=== PATIENT | female | born 1980 | race Caucasian/White ===

== ENCOUNTER 2017-04-25 16:04 | Emergency (ER) | payer OTHER ==
[2017-04-25] MEDS ORDERED: MOTRIN PO ONE (17:55)
[2017-04-25] MEDS ORDERED: MOTRIN ONE (17:56)
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
[2017-04-25 18:22] LABS: Amorphous Crystals,Urine Few; Bacteria,Urine 1+ /HPF (Negative); Bilirubin,Urine NEG (Negative); Blood,Urine NEG (Negative); Color,Urine Yellow (Yellow); Mucus,Urine FEW /HPF; Protein,Urine <15 mg/dL mg/dL (Negative)
[2017-04-25 18:25] LABS: HCG Qualitative,Urine Negative (Negative)
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
[2017-04-25 23:59] VITALS: BP 116/64
== END 2017-04-25 22:09 | disposition home or self-care (01) ==
LOC: ED 16:04
DX: S39.012A Strain of muscle, fascia and tendon of lower back, initial encounter (principal); S13.4XXA Sprain of ligaments of cervical spine, initial encounter; F17.200 Nicotine dependence, unspecified, uncomplicated; V89.2XXA Person injured in unspecified motor-vehicle accident, traffic, initial encounter; Y93.89 Activity, other specified; Y92.89 Other specified places as the place of occurrence of the external cause; Y99.8 Other external cause status
CPT/HCPCS: 72040; 72070; 72100; 81001; 81025; 99284

== ENCOUNTER 2017-11-15 14:50 | Emergency (ER) | payer SELFPAY ==
[2017-11-15] MEDS ORDERED: DECADRON IM ONE (17:35)
--- NOTE | 2017-11-15 17:36 | Emergency Department Report ---
ED Rash HPI - HPI Chief Complaint: Skin Rash Stated Complaint: FEVER/COLD Duration: 3 weeks Location: Neck, Chest, Back, Upper Extremities, Lower Extremities Suspected Cause: Plant Rash Symptoms: Yes Itching, Yes Blistering, No Facial Swelling, No Tongue/Oral Swelling, No Breathing Difficulties, No Choking Sensation, No Wheezing/Dyspnea, No Peeling, No Fever, No Lightheaded, No Malaise, No Myalgias Other History: This is a 37-year-old female presents with a pruritic rash for 3 weeks. Patient states she was working in the [employer] 3 weeks ago and came in contact with [employer]. She reports rash initially started arm right forearm. Each day rash continued to spread. She is currently taking and see an over- the-counter itch cream. Patient reports rash increased during meals soaks and showers. She is also complaining of body aches and chills. Patient denies shorntess of breath, chest pain, tongue swelling, drolling, or difficulty swallowing. ED Review of Systems ROS: Stated complaint: FEVER/COLD Other details as noted in HPI Constitutional: chills. denies: fever ENT: denies: ear pain, throat pain Respiratory: denies: cough, shortness of breath, wheezing Cardiovascular: denies: chest pain, palpitations Gastrointestinal: denies: abdominal pain, nausea, diarrhea Skin: rash (generalized rash). denies: lesions Neurological: denies: headache, weakness, paresthesias Psychiatric: denies: anxiety, depression ED Past Medical Hx - Past Medical History Previous Medical History?: No - Surgical History Past Surgical History?: No - Social History Smoking Status: Former Smoker Substance Use Type: None - Medications Home Medications: Home Medications Medication Instructions Recorded Confirmed Last Taken Type Cyclobenzaprine [Flexeril] 10 mg PO QHS PRN #7 tablet 04/25/17 Unknown Rx Ibuprofen [Motrin] 600 mg PO Q8H PRN #30 tablet 04/25/17 Unknown Rx Prednisone [predniSONE 10 mg 10 mg PO .TAPER #1 tab.ds.pk 11/15/17 Unknown Rx (6-Day Pack, 21 Tabs)] Triamcinolone 0.5% [Kenalog 0.5% 1 applic TP BID 5 Days #1 tube 11/15/17 Unknown Rx CREAM] hydrOXYzine PAMOATE [Vistaril] 25 mg PO Q6HR PRN #12 capsule 11/15/17 Unknown Rx Rash Exam - Exam General: Vital signs noted. No distress. Alert and acting appropriately. HEENT: No Periorbital Edema, No Conjuctival Injection, No Chemosis, No Perioral Edema, No Tongue Edema, No Uvular Edema, No Compromised Airway, No Drooling Lungs: Yes Good Air Exchange (Normal Breath Sounds), No Wheezes, No Ronchi, No Stridor, No Cough, No Labored Respirations, No Retractions, No Use of Accessory Muscles, No Other Abnormal Lung Sounds Heart: Yes Regular, No Murmur Skin: Yes Weeping, Yes Tenderness, Yes Erythema, Yes Encrustations, Yes Other ( linear papulovesicular rash to anterior and posterior trunk, BUE, and BLE), No Urticarial Rash, No Maculopapular Rash, No Morbilliform rash, No Bulla(e), No Excoriations, No Edema ED Course Vital Signs 11/15/17 15:18 Temperature 85 F L Pulse Rate 85 Respiratory 18 Rate Blood Pressure 151/90 O2 Sat by Pulse 100 Oximetry Vital Signs 11/15/17 11/15/17 15:18 18:39 Temperature 85 F L 98.2 F Pulse Rate 85 60 Respiratory 18 16 Rate Blood Pressure 151/90 Blood Pressure 140/75 [Left] O2 Sat by Pulse 100 100 Oximetry ED Medical Decision Making - Medical Decision Making Patient was examined by me. Vitals are stable and patient is in no acute distress. Given dexamethasone 8 mg IM once in ER. Physical findings susceptible of severe poison shey dermatitis. Start prednisone taper, clobetasol, and hydroxizine. Plan discussed with patient to discharge home and treat outpatient. Patient discharged home in stable condition. Follow up with PCP in 2-3 days. Critical care attestation.: If time is entered above; I have spent that time in minutes in the direct care of this critically ill patient, excluding procedure time. ED Disposition Clinical Impression: Rash in adult, Poison shey dermatitis Disposition: - TO HOME OR SELFCARE Is pt being admited?: No Does the pt Need Aspirin: No Condition: Stable Instructions: Poison Shey (ED) Additional Instructions: Apply a thin layer or steroid cream to rash twice a day. Follow up with your primary care provider in 2-3 days. Prescriptions: hydrOXYzine PAMOATE [Vistaril] 25 mg PO Q6HR PRN #12 capsule PRN Reason: Itching Prednisone [predniSONE 10 mg (6-Day Pack, 21 Tabs)] 10 mg PO .TAPER #1 tab.ds.pk Triamcinolone 0.5% [Kenalog 0.5% CREAM] 1 applic TP BID 5 Days #1 tube [address]errals: [facility] [Outside] - 3-5 Days [facility] [Outside] - 3-5 Days [facility] [Outside] - 3-5 Days Forms: Work/School Release Form(ED) Time of Disposition: 18:17 Print Language: LATVIAN
[2017-11-15 18:40] VITALS: BP 140/75
== END 2017-11-15 18:40 | disposition home or self-care (01) ==
LOC: ED 14:50
DX: L23.7 Allergic contact dermatitis due to plants, except food (principal); Z87.891 Personal history of nicotine dependence
CPT/HCPCS: 96372; 99281; J1100

== ENCOUNTER 2020-01-05 13:55 | Inpatient (IN) | payer MEDICAID ==
[2020-01-05] MEDS ORDERED: LIDOCAINE (2%) 20 MG/1 ML VIAL 20 ML MDV INFILTRATI ONE (15:57)
[2020-01-05] MEDS ORDERED: NalbUPHINE 10 MG/1 ML INJ IV PRN (15:57)
[2020-01-05] MEDS ORDERED: ONDANSETRON 4 MG/2 ML INJ IV PRN (15:57)
[2020-01-05] MEDS ORDERED: ePHEDrine SULFATE 50 MG/1 ML INJ IV PRN (15:57)
[2020-01-05] MEDS ORDERED: TERBUTALINE 1 MG/1 ML INJ SUB-Q PRN (15:57)
[2020-01-05] MEDS ORDERED: MINERAL OIL 30 ML ORAL LIQD PO PRN (15:57)
[2020-01-05] MEDS ORDERED: OXYTOCIN DRIP 30 UNITS/500 ML BAG IV SCH (16:00)
[2020-01-05] MEDS ORDERED: LACTATED RINGERS 1,000 ML IV SCH (16:00)
[2020-01-05] MEDS ORDERED: fentaNYL 100 MCG/2 ML INJ ONE (17:01)
[2020-01-05] MEDS ORDERED: fentaNYL 100 MCG/2 ML INJ IV ONE (17:04)
[2020-01-05 17:16] LABS: Hematocrit 37.6 % (30.3-42.9); Hemoglobin 13.1 gm/dl (10.1-14.3); Mean Corpuscular HGB Conc 35 % (30-34); Mean Corpuscular Volume 88 fl (79-97); Platelet Count 341 K/mm3 (140-440); Red Blood Count 4.26 M/mm3 (3.65-5.03); Red Cell Distribution Width 14.2 % (13.2-15.2)
[2020-01-05 17:24] LABS: Bacteria,Urine 1+ /HPF (Negative); Bilirubin,Urine NEG (Negative); Blood,Urine SM (Negative); Color,Urine Yellow (Yellow); Mucus,Urine FEW /HPF; Protein,Urine <15 mg/dL mg/dL (Negative); Urobilinogen,Urine < 2.0 mg/dL (<2.0)
--- NOTE | 2020-01-05 17:44 | History and Physical Report ---
History of Present Illness Date of examination: 01/05/20 Date of admission: 01/05/20 15:57 History of present illness: 39 at 34w 4 days presents with abd pain and ctxs. No VB but has a h/o cerclage. No LOF. Good FM. Pt got a fentanyl for pain. not currently available. She had her cerclage at [facility] (likely at [facility]). PT has a h/o a 23 weeks who survived and a 27 week was passed. Past History Past Medical History: no pertinent history Past Surgical History: other (cerclage) Social history: no significant social history - Obstetrical History Expected Date of Delivery: 02/12/20 Actual Gestation: 34 Week(s) 4 Day(s) : 3 Para: 2 Number of Pregnancies: 2 (23 and 27 weeks) Spontaneous Abortions: 0 Number of Living Children: 1 Medications and Allergies Allergies Allergy/AdvReac Type Severity Reaction Status Date / Time No Known Allergies Allergy Verified 10/08/19 16:58 Home Medications Medication Instructions Recorded Confirmed Last Taken Type Cyclobenzaprine [Flexeril] 10 mg PO QHS PRN #7 tablet 04/25/17 Unknown Rx Ibuprofen [Motrin] 600 mg PO Q8H PRN #30 tablet 04/25/17 Unknown Rx Prednisone [predniSONE 10 mg 10 mg PO .TAPER #1 tab.ds.pk 11/15/17 Unknown Rx (6-Day Pack, 21 Tabs)] Triamcinolone 0.5% [Kenalog 0.5% 1 applic TP BID 5 Days #1 tube 11/15/17 Unknown Rx CREAM] hydrOXYzine PAMOATE [Vistaril] 25 mg PO Q6HR PRN #12 capsule 11/15/17 Unknown Rx Nitrofurantoin [place]/M-Cryst 100 mg PO Q12HR 7 Days #14 capsule 10/08/19 Unknown Rx [Macrobid CAP] Active Meds: Active Medications Ephedrine Sulfate (Ephedrine Sulfate) 10 mg IV Q2M PRN PRN Reason: Hypotension Lactated Ringer's (Lactated Ringers) 1,000 mls @ 125 mls/hr IV DIRECT JENNY Oxytocin/Sodium Chloride (Pitocin/Ns 30 Unit/500ml) 30 units in 500 mls @ 2 mls/hr IV TITR JENNY; Protocol Lactated Ringer's (Lactated Ringers) 1,000 mls @ 125 mls/hr IV DIRECT JENNY Mineral Oil (Mineral Oil) 30 ml PO QHS PRN PRN Reason: Constipation Nalbuphine HCl (Nalbuphine) 10 mg IV Q2H PRN PRN Reason: Pain, Moderate (4-6) Ondansetron HCl (Zofran) 4 mg IV Q8H PRN PRN Reason: Nausea And Vomiting Terbutaline Sulfate (Brethine) 0.25 mg SUB-Q ONCE PRN PRN Reason: Hyperstimulation/Hypertonicity Review of Systems All systems: negative (except HPI) - Vital Signs Vital signs: Vital Signs Pulse BP 85 113/65 01/05/20 14:28 01/05/20 14:28 Temp Pulse Resp BP Pulse Ox 98.8 F 78 146/90 89 01/05/20 15:00 01/05/20 17:32 01/05/20 17:16 01/05/20 17:32 - Physical Exam Cervix: Positive: other (cervix had 2 cerclage knots. Both were able to be cut and removed. After removal, no additional suture was palpable.) - Obstetrical FHR: auscultation normal, category 1 Cervical Dilatation: 3 Cervical Effacement Percentage: 50 station: -4 Uterine Contraction Pattern: Irregular Results Result Diagrams: 01/05/20 Unknown Abnormal lab results 01/05/20 01/05/20 Range/Units Unknown Unknown MCHC 35 H (30-34) % Urine WBC (Auto) 117.0 H (0.0-6.0) /HPF All other labs normal. Assessment and Plan - Patient Problems (1) Premature cervical dilation in third trimester Current Visit: Yes Status: Acute Plan to address problem: PT in possible PTL and as a result, her cerclages were removed today. Will cont to observe to rule out labor and will give Betamethasone. Also will check an U/S due to the amount of pain she seems to be having. PT understands and agrees with the plan. Will need to get .
[2020-01-05] MEDS: BETAMET ACET/BETAMET NA PH 6 MG/ML INJ 5 ML MDV IM SCH (18:08)
[2020-01-05] MEDS ORDERED: diphenhydrAMINE 25 MG CAP PO ONE (20:00)
--- NOTE | 2020-01-05 20:16 | Ultrasound Report ---
ULTRASOUND OBSTETRIC INDICATION / CLINICAL INFORMATION: labor. Clinical Gestational Age (GA): TECHNIQUE: Transabdominal. COMPARISON: None available. FINDINGS: There is a single intrauterine . Heart Rate: 144 beats per minute. Position: cephalic. Placenta: Anterior and fundally and free of the os. IMPRESSION: 1. Limited OB ultrasound as noted for placental position Signer Name: Wai Moore MD Signed: 01/05/2020 8:11 PM Workstation Name: [id number]
[2020-01-05] MEDS ORDERED: MORPHINE 10 MG/1 ML INJ IM ONE (21:00)
[2020-01-06] MEDS ORDERED: PROMETHAZINE 25 MG TAB PO ONE (01:13)
[2020-01-06] MEDS ORDERED: MORPHINE 4 MG/1 ML INJ IM ONE (01:14)
[2020-01-06] MEDS: BUTORPHANOL 2 MG/1 ML INJ IV PRN ×5 (08:32→22:49)
--- NOTE | 2020-01-06 10:23 | Progress Note ---
Assessment and Plan - Patient Problems (1) Premature cervical dilation in third trimester Current Visit: Yes Status: Acute Plan to address problem: Known hx of delivery and cervical insufficiency s/p removal of cerclage 01/05/2020 for cervical dilation --s/p BMS x 2, total of 2 --Amp for dates --Nifedipine 10mg qd6hr contractions --Anticipate if indicated Subjective - Subjective Date of service: 01/06/20 Principal diagnosis: contractions Interval history: Patient reports that pain is better, but still having contractions. Denies VB or LOF. +FM. profile reviewed. Known hx of cerclage for hx of cervical insufficiency and in 2nd/3rd trimester, removed yesterday for painful contractions. On Kathleen weekly Bilateral pylelectasis Rubella NI GDM: 1hr GTT 206, diet controlled Mild pericardial effusion of fetus Patient reports: contractions (persistent) Objective - Vital Signs Vital Signs: Vital Signs - 12hr 01/05/20 01/05/20 01/05/20 22:20 22:23 22:25 Temperature Pulse Rate 69 77 78 Respiratory Rate Blood Pressure Blood Pressure [Right] O2 Sat by Pulse 94 94 94 Oximetry 01/05/20 01/05/20 01/05/20 22:28 22:30 22:35 Temperature Pulse Rate 72 82 75 Respiratory Rate Blood Pressure Blood Pressure [Right] O2 Sat by Pulse 94 96 96 Oximetry 01/05/20 01/05/20 01/05/20 22:40 22:44 22:45 Temperature Pulse Rate 77 91 H 80 Respiratory Rate Blood Pressure Blood Pressure [Right] O2 Sat by Pulse 98 94 97 Oximetry 01/05/20 01/05/20 01/05/20 22:46 22:50 22:55 Temperature Pulse Rate 82 82 84 Respiratory Rate Blood Pressure 113/58 Blood Pressure [Right] O2 Sat by Pulse 96 96 Oximetry 01/05/20 01/05/20 01/05/20 23:00 23:05 23:10 Temperature Pulse Rate 76 92 H 87 Respiratory Rate Blood Pressure Blood Pressure [Right] O2 Sat by Pulse 96 97 95 Oximetry 01/05/20 01/05/20 01/05/20 23:15 23:16 23:18 Temperature Pulse Rate 78 72 86 Respiratory Rate Blood Pressure 98/56 Blood Pressure [Right] O2 Sat by Pulse 95 94 Oximetry 01/05/20 01/05/2020 23:20 23:25 23:30 Temperature Pulse Rate 80 80 85 Respiratory Rate Blood Pressure Blood Pressure [Right] O2 Sat by Pulse 96 95 96 Oximetry 01/05/20 01/05/20 01/05/20 23:34 23:35 23:40 Temperature Pulse Rate 82 76 76 Respiratory Rate Blood Pressure Blood Pressure [Right] O2 Sat by Pulse 94 96 97 Oximetry 01/05/20 01/05/20 01/05/20 23:45 23:46 23:50 Temperature Pulse Rate 78 78 77 Respiratory Rate Blood Pressure 101/55 Blood Pressure [Right] O2 Sat by Pulse 97 96 Oximetry 01/05/20 01/05/20 01/06/20 23:55 23:59 00:00 Temperature 98.3 F Pulse Rate 75 74 78 Respiratory 18 Rate Blood Pressure Blood Pressure [Right] O2 Sat by Pulse 95 94 95 Oximetry 01/06/20 01/06/20 01/06/20 00:05 00:07 00:10 Temperature Pulse Rate 79 75 72 Respiratory Rate Blood Pressure Blood Pressure [Right] O2 Sat by Pulse 95 94 95 Oximetry 01/06/20 01/06/20 01/06/20 00:14 00:15 00:16 Temperature Pulse Rate 73 76 82 Respiratory Rate Blood Pressure 102/58 Blood Pressure [Right] O2 Sat by Pulse 94 96 Oximetry 01/06/20 01/06/20 01/06/20 00:20 00:25 00:30 Temperature Pulse Rate 73 74 95 H Respiratory Rate Blood Pressure Blood Pressure [Right] O2 Sat by Pulse 95 96 96 Oximetry 01/06/20 01/06/20 01/06/20 00:33 00:35 00:39 Temperature Pulse Rate 82 82 92 H Respiratory Rate Blood Pressure Blood Pressure [Right] O2 Sat by Pulse 94 96 94 Oximetry 01/06/20 01/06/20 01/06/20 00:40 00:45 00:46 Temperature Pulse Rate 77 88 73 Respiratory Rate Blood Pressure 109/55 Blood Pressure [Right] O2 Sat by Pulse 96 95 Oximetry 01/06/20 01/06/20 01/06/20 00:50 00:55 01:00 Temperature Pulse Rate 86 63 83 Respiratory Rate Blood Pressure Blood Pressure [Right] O2 Sat by Pulse 96 97 97 Oximetry 01/06/20 01/06/20 01/06/20 01:05 01:10 01:15 Temperature Pulse Rate 89 82 85 Respiratory Rate Blood Pressure Blood Pressure [Right] O2 Sat by Pulse 97 95 95 Oximetry 01/06/20 01/06/20 01/06/20 01:16 01:20 01:22 Temperature Pulse Rate 78 81 85 Respiratory Rate Blood Pressure 98/55 Blood Pressure [Right] O2 Sat by Pulse 95 94 Oximetry 01/06/20 01/06/20 01/06/20 01:25 01:27 01:30 Temperature Pulse Rate 83 88 79 Respiratory Rate Blood Pressure Blood Pressure [Right] O2 Sat by Pulse 95 94 95 Oximetry 01/06/20 01/06/20 01/06/20 01:33 01:35 01:38 Temperature Pulse Rate 75 84 75 Respiratory Rate Blood Pressure Blood Pressure [Right] O2 Sat by Pulse 94 95 94 Oximetry 01/06/20 01/06/20 01/06/20 01:40 01:44 01:45 Temperature Pulse Rate 80 92 H 76 Respiratory Rate Blood Pressure Blood Pressure [Right] O2 Sat by Pulse 94 94 94 Oximetry 01/06/20 01/06/20 01/06/20 01:46 01:50 01:51 Temperature Pulse Rate 73 77 77 Respiratory Rate Blood Pressure 109/53 Blood Pressure [Right] O2 Sat by Pulse 94 93 Oximetry 01/06/20 01/06/20 01/06/20 01:55 01:57 02:00 Temperature Pulse Rate 81 79 79 Respiratory Rate Blood Pressure Blood Pressure [Right] O2 Sat by Pulse 95 94 94 Oximetry 01/06/20 01/06/20 01/06/20 02:02 02:05 02:10 Temperature Pulse Rate 78 94 H 81 Respiratory Rate Blood Pressure Blood Pressure [Right] O2 Sat by Pulse 94 96 95 Oximetry 01/06/20 01/06/20 01/06/20 02:11 02:15 02:17 Temperature Pulse Rate 81 78 81 Respiratory Rate Blood Pressure 101/54 Blood Pressure [Right] O2 Sat by Pulse 94 95 94 Oximetry 01/06/20 01/06/20 01/06/20 02:20 02:23 02:25 Temperature Pulse Rate 79 81 79 Respiratory Rate Blood Pressure Blood Pressure [Right] O2 Sat by Pulse 95 94 95 Oximetry 01/06/20 01/06/20 01/06/20 02:30 02:35 02:36 Temperature Pulse Rate 79 77 76 Respiratory Rate Blood Pressure Blood Pressure [Right] O2 Sat by Pulse 95 95 94 Oximetry 01/06/20 01/06/20 01/06/20 02:40 02:41 02:45 Temperature Pulse Rate 81 78 84 Respiratory Rate Blood Pressure Blood Pressure [Right] O2 Sat by Pulse 94 94 94 Oximetry 01/06/20 01/06/20 01/06/20 02:46 02:49 02:50 Temperature Pulse Rate 77 78 76 Respiratory Rate Blood Pressure 96/50 Blood Pressure [Right] O2 Sat by Pulse 94 95 Oximetry 01/06/20 01/06/20 01/06/20 02:55 02:56 03:00 Temperature Pulse Rate 84 87 90 Respiratory Rate Blood Pressure Blood Pressure [Right] O2 Sat by Pulse 94 94 95 Oximetry 01/06/20 01/06/20 01/06/20 03:01 03:05 03:06 Temperature Pulse Rate 85 76 79 Respiratory Rate Blood Pressure Blood Pressure [Right] O2 Sat by Pulse 94 95 94 Oximetry 01/06/20 01/06/20 01/06/20 03:09 03:10 03:12 Temperature Pulse Rate 85 87 Respiratory 18 Rate Blood Pressure Blood Pressure [Right] O2 Sat by Pulse 95 94 Oximetry 01/06/20 01/06/20 01/06/20 03:15 03:16 03:17 Temperature Pulse Rate 80 75 76 Respiratory Rate Blood Pressure 94/51 Blood Pressure [Right] O2 Sat by Pulse 96 94 Oximetry 01/06/20 01/06/20 01/06/20 03:20 03:22 03:25 Temperature Pulse Rate 75 75 75 Respiratory Rate Blood Pressure Blood Pressure [Right] O2 Sat by Pulse 96 94 95 Oximetry 01/06/20 01/06/20 01/06/20 03:29 03:30 03:35 Temperature Pulse Rate 76 82 77 Respiratory Rate Blood Pressure Blood Pressure [Right] O2 Sat by Pulse 94 94 94 Oximetry 01/06/20 01/06/20 01/06/20 03:39 03:40 03:45 Temperature Pulse Rate 75 80 Respiratory 18 Rate Blood Pressure Blood Pressure [Right] O2 Sat by Pulse 95 94 Oximetry 01/06/20 01/06/20 01/06/20 03:47 03:50 03:53 Temperature Pulse Rate 79 77 72 Respiratory Rate Blood Pressure 92/55 Blood Pressure [Right] O2 Sat by Pulse 94 94 94 Oximetry 01/06/20 01/06/20 01/06/20 03:55 03:58 04:00 Temperature Pulse Rate 81 76 74 Respiratory Rate Blood Pressure Blood Pressure [Right] O2 Sat by Pulse 93 94 94 Oximetry 01/06/20 01/06/20 01/06/20 04:04 04:05 04:10 Temperature Pulse Rate 75 76 66 Respiratory Rate Blood Pressure Blood Pressure [Right] O2 Sat by Pulse 94 94 96 Oximetry 01/06/20 01/06/20 01/06/20 04:12 04:15 04:18 Temperature Pulse Rate 71 69 70 Respiratory Rate Blood Pressure Blood Pressure [Right] O2 Sat by Pulse 94 95 94 Oximetry 01/06/20 01/06/20 01/06/20 04:19 04:20 04:24 Temperature Pulse Rate 68 65 68 Respiratory Rate Blood Pressure 106/54 Blood Pressure [Right] O2 Sat by Pulse 95 94 Oximetry 01/06/20 01/06/20 01/06/20 04:25 04:30 04:31 Temperature Pulse Rate 67 67 69 Respiratory Rate Blood Pressure Blood Pressure [Right] O2 Sat by Pulse 94 94 94 Oximetry 01/06/20 01/06/20 01/06/20 04:35 04:38 04:40 Temperature Pulse Rate 64 63 65 Respiratory Rate Blood Pressure Blood Pressure [Right] O2 Sat by Pulse 94 94 94 Oximetry 01/06/20 01/06/20 01/06/20 04:44 04:45 04:46 Temperature Pulse Rate 72 69 65 Respiratory Rate Blood Pressure 101/52 Blood Pressure [Right] O2 Sat by Pulse 94 94 Oximetry 01/06/20 01/06/20 01/06/20 04:50 04:55 05:00 Temperature Pulse Rate 69 70 67 Respiratory Rate Blood Pressure Blood Pressure [Right] O2 Sat by Pulse 94 94 94 Oximetry 01/06/20 01/06/20 01/06/20 05:01 05:05 05:06 Temperature Pulse Rate 64 70 66 Respiratory Rate Blood Pressure Blood Pressure [Right] O2 Sat by Pulse 94 94 94 Oximetry 01/06/20 01/06/20 01/06/20 05:10 05:11 05:15 Temperature Pulse Rate 66 66 78 Respiratory Rate Blood Pressure Blood Pressure [Right] O2 Sat by Pulse 94 94 93 Oximetry 01/06/20 01/06/20 01/06/20 05:16 05:17 05:20 Temperature Pulse Rate 79 75 78 Respiratory Rate Blood Pressure 103/53 Blood Pressure [Right] O2 Sat by Pulse 93 94 Oximetry 01/06/20 01/06/20 01/06/20 05:23 05:25 05:30 Temperature Pulse Rate 70 70 73 Respiratory Rate Blood Pressure Blood Pressure [Right] O2 Sat by Pulse 94 95 95 Oximetry 01/06/20 01/06/20 01/06/20 05:35 05:37 05:40 Temperature Pulse Rate 70 69 69 Respiratory Rate Blood Pressure Blood Pressure [Right] O2 Sat by Pulse 94 94 94 Oximetry 01/06/20 01/06/20 01/06/20 05:45 05:46 05:50 Temperature Pulse Rate 73 68 68 Respiratory Rate Blood Pressure 102/53 Blood Pressure [Right] O2 Sat by Pulse 95 94 95 Oximetry 01/06/20 01/06/20 01/06/20 05:53 05:55 06:00 Temperature Pulse Rate 70 66 66 Respiratory Rate Blood Pressure Blood Pressure [Right] O2 Sat by Pulse 94 95 96 Oximetry 01/06/20 01/06/20 01/06/20 06:05 06:07 06:10 Temperature Pulse Rate 62 61 67 Respiratory Rate Blood Pressure Blood Pressure [Right] O2 Sat by Pulse 96 94 94 Oximetry 01/06/20 01/06/20 01/06/20 06:13 06:15 06:17 Temperature Pulse Rate 68 67 71 Respiratory Rate Blood Pressure 114/54 Blood Pressure [Right] O2 Sat by Pulse 94 95 Oximetry 01/06/20 01/06/20 01/06/20 06:18 06:20 06:25 Temperature Pulse Rate 68 69 85 Respiratory Rate Blood Pressure Blood Pressure [Right] O2 Sat by Pulse 94 94 96 Oximetry 01/06/20 01/06/20 01/06/20 06:26 06:30 06:35 Temperature Pulse Rate 79 70 73 Respiratory Rate Blood Pressure Blood Pressure [Right] O2 Sat by Pulse 94 94 94 Oximetry 01/06/20 01/06/20 01/06/20 06:40 06:41 06:45 Temperature Pulse Rate 65 70 71 Respiratory Rate Blood Pressure Blood Pressure [Right] O2 Sat by Pulse 96 94 95 Oximetry 01/06/20 01/06/20 01/06/20 06:47 06:50 06:54 Temperature Pulse Rate 71 72 72 Respiratory Rate Blood Pressure 84/47 Blood Pressure [Right] O2 Sat by Pulse 94 95 93 Oximetry 01/06/20 01/06/20 01/06/20 06:55 07:00 07:01 Temperature Pulse Rate 83 74 75 Respiratory Rate Blood Pressure Blood Pressure [Right] O2 Sat by Pulse 96 95 94 Oximetry 01/06/20 01/06/20 01/06/20 07:05 07:07 07:10 Temperature 98.3 F Pulse Rate 71 74 76 Respiratory 16 Rate Blood Pressure 93/52 Blood Pressure 93/52 [Right] O2 Sat by Pulse 96 96 Oximetry 01/06/20 01/06/20 01/06/20 07:15 07:18 07:20 Temperature Pulse Rate 82 80 83 Respiratory Rate Blood Pressure 96/52 Blood Pressure [Right] O2 Sat by Pulse 96 96 Oximetry 01/06/20 01/06/20 01/06/20 07:25 07:30 07:35 Temperature Pulse Rate 85 83 70 Respiratory Rate Blood Pressure Blood Pressure [Right] O2 Sat by Pulse 96 97 96 Oximetry 01/06/20 01/06/20 01/06/20 07:37 07:40 07:45 Temperature Pulse Rate 82 77 75 Respiratory Rate Blood Pressure Blood Pressure [Right] O2 Sat by Pulse 94 95 94 Oximetry 01/06/20 01/06/20 01/06/20 07:47 07:50 07:55 Temperature Pulse Rate 71 76 85 Respiratory Rate Blood Pressure 96/51 Blood Pressure [Right] O2 Sat by Pulse 94 95 Oximetry 01/06/20 01/06/20 01/06/20 08:00 08:03 08:05 Temperature Pulse Rate 75 92 H 69 Respiratory Rate Blood Pressure Blood Pressure [Right] O2 Sat by Pulse 96 94 96 Oximetry 01/06/20 01/06/20 01/06/20 08:10 08:15 08:16 Temperature Pulse Rate 84 82 88 Respiratory Rate Blood Pressure 110/57 Blood Pressure [Right] O2 Sat by Pulse 97 96 Oximetry 01/06/20 01/06/20 01/06/20 08:20 08:25 08:29 Temperature Pulse Rate 84 77 65 Respiratory Rate Blood Pressure Blood Pressure [Right] O2 Sat by Pulse 96 96 94 Oximetry 01/06/20 01/06/20 01/06/20 08:30 08:32 08:35 Temperature Pulse Rate 67 61 Respiratory 18 Rate Blood Pressure Blood Pressure [Right] O2 Sat by Pulse 95 94 Oximetry 01/06/20 01/06/20 01/06/20 08:36 08:40 08:41 Temperature Pulse Rate 61 74 74 Respiratory Rate Blood Pressure Blood Pressure [Right] O2 Sat by Pulse 93 95 94 Oximetry 01/06/20 01/06/20 01/06/20 08:45 08:46 08:50 Temperature Pulse Rate 68 68 66 Respiratory Rate Blood Pressure 100/52 Blood Pressure [Right] O2 Sat by Pulse 94 94 94 Oximetry 01/06/20 01/06/20 01/06/20 08:51 08:55 08:57 Temperature Pulse Rate 68 67 62 Respiratory Rate Blood Pressure Blood Pressure [Right] O2 Sat by Pulse 94 95 94 Oximetry 01/06/20 01/06/20 01/06/20 09:00 09:03 09:05 Temperature Pulse Rate 64 64 65 Respiratory Rate Blood Pressure Blood Pressure [Right] O2 Sat by Pulse 94 94 95 Oximetry 01/06/20 01/06/20 01/06/20 09:08 09:10 09:14 Temperature Pulse Rate 64 62 65 Respiratory Rate Blood Pressure Blood Pressure [Right] O2 Sat by Pulse 94 94 94 Oximetry 01/06/20 01/06/20 01/06/20 09:15 09:17 09:19 Temperature Pulse Rate 63 66 66 Respiratory Rate Blood Pressure 95/54 Blood Pressure [Right] O2 Sat by Pulse 95 94 Oximetry 01/06/20 01/06/20 01/06/20 09:20 09:25 09:28 Temperature Pulse Rate 62 60 67 Respiratory Rate Blood Pressure Blood Pressure [Right] O2 Sat by Pulse 94 95 94 Oximetry 01/06/20 01/06/20 01/06/20 09:30 09:35 09:38 Temperature Pulse Rate 67 71 69 Respiratory Rate Blood Pressure Blood Pressure [Right] O2 Sat by Pulse 95 95 94 Oximetry 01/06/20 01/06/20 01/06/20 09:40 09:43 09:45 Temperature Pulse Rate 67 75 83 Respiratory Rate Blood Pressure Blood Pressure [Right] O2 Sat by Pulse 95 94 94 Oximetry 01/06/20 01/06/20 01/06/20 09:46 09:50 09:55 Temperature Pulse Rate 69 70 63 Respiratory Rate Blood Pressure 106/61 Blood Pressure [Right] O2 Sat by Pulse 96 95 Oximetry 01/06/20 01/06/20 01/06/20 10:00 10:05 10:10 Temperature Pulse Rate 70 74 66 Respiratory Rate Blood Pressure Blood Pressure [Right] O2 Sat by Pulse 95 95 95 Oximetry 01/06/20 10:15 Temperature Pulse Rate 66 Respiratory Rate Blood Pressure Blood Pressure [Right] O2 Sat by Pulse 95 Oximetry - Exam Abdomen: Present: normal appearance, normal bowel sounds, other (gravid) Cervical Dilatation: 3 Cervical Effacement Percentage: 50 station: -3 Uterine Contraction Pattern: Irregular - Labs Labs: Abnormal Labs 01/05/20 01/05/20 Unknown Unknown MCHC 35 H Urine WBC (Auto) 117.0 H Laboratory Results - last 24 hr 01/05/20 01/05/20 01/05/20 17:03 Unknown Unknown WBC 10.7 RBC 4.26 Hgb 13.1 Hct 37.6 MCV 88 MCH 31 MCHC 35 H RDW 14.2 Plt Count 341 Urine Color Yellow Urine Turbidity Slightly-cloudy Urine pH 6.0 Ur Specific [place] 1.015 Urine Protein <15 mg/dl Urine Glucose (UA) Neg Urine Ketones Neg Urine Blood Sm Urine Nitrite Neg Urine Bilirubin Neg Urine Urobilinogen < 2.0 Ur Leukocyte Esterase Lg Urine WBC (Auto) 117.0 H Urine RBC (Auto) 8.0 U Epithel Cells (Auto) 7.0 Urine Bacteria (Auto) 1+ Urine Mucus Few Syphilis IgG Antibody Blood Type B POSITIVE Antibody Screen Negative 01/05/20 Unknown WBC RBC Hgb Hct MCV MCH MCHC RDW Plt Count Urine Color Urine Turbidity Urine pH Ur Specific [place] Urine Protein Urine Glucose (UA) Urine Ketones Urine Blood Urine Nitrite Urine Bilirubin Urine Urobilinogen Ur Leukocyte Esterase Urine WBC (Auto) Urine RBC (Auto) U Epithel Cells (Auto) Urine Bacteria (Auto) Urine Mucus Syphilis IgG Antibody Nonreactive Blood Type Antibody Screen
[2020-01-06] MEDS: NIFEdipine*For Tocolysis only* 10 MG CAPSULE PO SCH ×2 (11:38→16:50)
[2020-01-06] MEDS: LACTATED RINGERS 1,000 ML IV SCH ×2 (14:25→22:50)
[2020-01-06] MEDS: BETAMET ACET/BETAMET NA PH 6 MG/ML INJ 5 ML MDV IM SCH (18:12)
[2020-01-07] MEDS ORDERED: ZOLPIDEM 5 MG TAB PO PRN (00:45)
[2020-01-07] MEDS: NIFEdipine*For Tocolysis only* 10 MG CAPSULE PO SCH ×3 (00:49→10:29)
[2020-01-07] MEDS: BUTORPHANOL 2 MG/1 ML INJ IV PRN ×2 (07:54→13:37)
[2020-01-07] MEDS: LACTATED RINGERS 1,000 ML IV SCH ×4 (09:02→16:45)
--- NOTE | 2020-01-07 13:32 | Progress Note ---
Subjective - Subjective Date of service: 01/07/20 Principal diagnosis: contractions Interval history: labor in pain, cervix 4/100/0 desires epidural, anesthesia notified ABX CFM expect MALGORZATA Miles MD Patient reports: contractions (persistent) Objective - Vital Signs Vital Signs: Vital Signs - 12hr 01/07/20 01/07/20 01/07/20 01:47 02:16 02:47 Temperature Pulse Rate 87 83 82 Respiratory Rate Blood Pressure 111/65 109/66 97/54 Blood Pressure [Right] O2 Sat by Pulse Oximetry 01/07/20 01/07/20 01/07/20 03:16 03:46 04:11 Temperature Pulse Rate 81 76 98 H Respiratory Rate Blood Pressure 97/54 115/63 Blood Pressure [Right] O2 Sat by Pulse 95 Oximetry 01/07/20 01/07/20 01/07/20 04:12 04:16 04:17 Temperature Pulse Rate 98 H 94 H 91 H Respiratory Rate Blood Pressure 116/64 Blood Pressure [Right] O2 Sat by Pulse 94 94 Oximetry 01/07/20 01/07/20 01/07/20 04:18 04:21 04:26 Temperature Pulse Rate 96 H 90 94 H Respiratory Rate Blood Pressure Blood Pressure [Right] O2 Sat by Pulse 94 94 93 Oximetry 01/07/20 01/07/20 01/07/20 04:31 04:36 04:41 Temperature Pulse Rate 90 89 89 Respiratory Rate Blood Pressure Blood Pressure [Right] O2 Sat by Pulse 94 93 93 Oximetry 01/07/20 01/07/20 01/07/20 04:46 04:49 04:51 Temperature 98.7 F Pulse Rate 88 94 H Respiratory 18 Rate Blood Pressure 114/63 Blood Pressure [Right] O2 Sat by Pulse 94 94 Oximetry 01/07/20 01/07/20 01/07/20 04:56 05:01 05:06 Temperature Pulse Rate 91 H 94 H 94 H Respiratory Rate Blood Pressure Blood Pressure [Right] O2 Sat by Pulse 94 93 93 Oximetry 01/07/20 01/07/20 01/07/20 05:08 05:11 05:16 Temperature Pulse Rate 92 H 94 H 93 H Respiratory Rate Blood Pressure 126/68 Blood Pressure [Right] O2 Sat by Pulse 94 94 94 Oximetry 01/07/20 01/07/20 01/07/20 05:19 05:21 05:25 Temperature Pulse Rate 96 H 85 86 Respiratory Rate Blood Pressure Blood Pressure [Right] O2 Sat by Pulse 93 94 94 Oximetry 01/07/20 01/07/20 01/07/20 05:26 05:30 05:31 Temperature Pulse Rate 88 85 86 Respiratory Rate Blood Pressure Blood Pressure [Right] O2 Sat by Pulse 94 93 94 Oximetry 01/07/20 01/07/20 01/07/20 05:36 05:41 05:46 Temperature Pulse Rate 93 H 87 91 H Respiratory Rate Blood Pressure 110/62 Blood Pressure [Right] O2 Sat by Pulse 93 93 93 Oximetry 01/07/20 01/07/20 01/07/20 05:51 05:56 06:00 Temperature Pulse Rate 87 89 102 H Respiratory Rate Blood Pressure Blood Pressure [Right] O2 Sat by Pulse 93 93 94 Oximetry 01/07/20 01/07/20 01/07/20 06:01 06:06 06:11 Temperature Pulse Rate 93 H 92 H 92 H Respiratory Rate Blood Pressure Blood Pressure [Right] O2 Sat by Pulse 94 93 93 Oximetry 01/07/20 01/07/20 01/07/20 06:14 06:16 06:21 Temperature Pulse Rate 94 H 97 H 91 H Respiratory Rate Blood Pressure 110/67 Blood Pressure [Right] O2 Sat by Pulse 94 94 93 Oximetry 01/07/20 01/07/20 01/07/20 06:26 06:31 06:33 Temperature Pulse Rate 92 H 89 90 Respiratory Rate Blood Pressure Blood Pressure [Right] O2 Sat by Pulse 94 94 94 Oximetry 01/07/20 01/07/20 01/07/20 06:36 06:38 06:41 Temperature Pulse Rate 81 86 83 Respiratory Rate Blood Pressure Blood Pressure [Right] O2 Sat by Pulse 95 94 94 Oximetry 01/07/20 01/07/20 01/07/20 06:44 06:46 06:51 Temperature Pulse Rate 81 88 90 Respiratory Rate Blood Pressure 115/69 Blood Pressure [Right] O2 Sat by Pulse 94 93 93 Oximetry 01/07/20 01/07/20 01/07/20 06:56 07:01 07:03 Temperature Pulse Rate 81 97 H 94 H Respiratory Rate Blood Pressure Blood Pressure [Right] O2 Sat by Pulse 94 95 94 Oximetry 01/07/20 01/07/20 01/07/20 07:06 07:10 07:11 Temperature Pulse Rate 91 H 96 H 91 H Respiratory Rate Blood Pressure Blood Pressure [Right] O2 Sat by Pulse 95 94 95 Oximetry 01/07/20 01/07/20 01/07/20 07:16 07:17 07:21 Temperature Pulse Rate 89 92 H 85 Respiratory Rate Blood Pressure 123/65 Blood Pressure [Right] O2 Sat by Pulse 95 94 95 Oximetry 01/07/20 01/07/20 01/07/20 07:26 07:31 07:37 Temperature Pulse Rate 89 101 H 105 H Respiratory Rate Blood Pressure Blood Pressure [Right] O2 Sat by Pulse 96 95 96 Oximetry 01/07/20 01/07/20 01/07/20 07:38 07:42 07:46 Temperature 98.7 F Pulse Rate 98 H 109 H 100 H Respiratory 18 Rate Blood Pressure 121/67 118/72 Blood Pressure 123/65 [Right] O2 Sat by Pulse 96 96 Oximetry 01/07/20 01/07/20 01/07/20 07:47 07:52 07:57 Temperature Pulse Rate 97 H 99 H 90 Respiratory Rate Blood Pressure Blood Pressure [Right] O2 Sat by Pulse 96 96 95 Oximetry 01/07/20 01/07/20 01/07/20 07:58 08:02 08:05 Temperature Pulse Rate 95 H 90 100 H Respiratory Rate Blood Pressure Blood Pressure [Right] O2 Sat by Pulse 94 95 94 Oximetry 01/07/20 01/07/20 01/07/20 08:07 08:11 08:12 Temperature Pulse Rate 87 78 81 Respiratory Rate Blood Pressure Blood Pressure [Right] O2 Sat by Pulse 94 93 94 Oximetry 01/07/20 01/07/20 01/07/20 08:16 08:17 08:22 Temperature Pulse Rate 75 73 72 Respiratory Rate Blood Pressure Blood Pressure [Right] O2 Sat by Pulse 94 93 95 Oximetry 01/07/20 01/07/20 01/07/20 08:25 08:27 08:32 Temperature Pulse Rate 72 74 74 Respiratory Rate Blood Pressure Blood Pressure [Right] O2 Sat by Pulse 94 94 95 Oximetry 01/07/20 01/07/20 01/07/20 08:37 08:41 08:42 Temperature Pulse Rate 74 75 73 Respiratory Rate Blood Pressure Blood Pressure [Right] O2 Sat by Pulse 95 94 95 Oximetry 11/02/1301/07/20 01/07/20 08:47 08:52 08:53 Temperature Pulse Rate 74 72 72 Respiratory Rate Blood Pressure Blood Pressure [Right] O2 Sat by Pulse 95 95 94 Oximetry 01/07/20 01/07/20 01/07/20 08:57 09:02 09:07 Temperature Pulse Rate 84 84 86 Respiratory Rate Blood Pressure Blood Pressure [Right] O2 Sat by Pulse 96 96 96 Oximetry 01/07/20 01/07/20 01/07/20 09:12 09:17 09:21 Temperature Pulse Rate 86 98 H 102 H Respiratory Rate Blood Pressure Blood Pressure [Right] O2 Sat by Pulse 96 95 94 Oximetry 01/07/20 01/07/20 01/07/20 09:22 09:27 09:32 Temperature Pulse Rate 105 H 102 H 104 H Respiratory Rate Blood Pressure Blood Pressure [Right] O2 Sat by Pulse 97 95 96 Oximetry 01/07/20 01/07/20 01/07/20 09:37 09:42 09:47 Temperature Pulse Rate 98 H 92 H 85 Respiratory Rate Blood Pressure Blood Pressure [Right] O2 Sat by Pulse 96 96 97 Oximetry 01/07/20 01/07/20 01/07/20 09:51 09:52 09:57 Temperature Pulse Rate 82 106 H Respiratory Rate Blood Pressure Blood Pressure [Right] O2 Sat by Pulse 86 85 80 L Oximetry 01/07/20 01/07/20 01/07/20 09:58 10:31 10:32 Temperature 98 F Pulse Rate 182 H 95 H 91 H Respiratory 17 Rate Blood Pressure Blood Pressure 133/75 [Right] O2 Sat by Pulse 83 L 98 97 Oximetry 01/07/20 01/07/20 01/07/20 10:34 10:37 10:42 Temperature Pulse Rate 90 95 H 80 Respiratory Rate Blood Pressure 133/75 Blood Pressure [Right] O2 Sat by Pulse 97 96 Oximetry 01/07/20 01/07/20 01/07/20 10:47 10:52 10:57 Temperature Pulse Rate 92 H 81 87 Respiratory Rate Blood Pressure Blood Pressure [Right] O2 Sat by Pulse 98 97 97 Oximetry 01/07/20 01/07/20 01/07/20 11:02 11:15 11:20 Temperature Pulse Rate 87 101 H 88 Respiratory Rate Blood Pressure Blood Pressure [Right] O2 Sat by Pulse 96 97 96 Oximetry 01/07/20 01/07/20 01/07/20 11:25 11:30 11:35 Temperature Pulse Rate 88 83 83 Respiratory Rate Blood Pressure Blood Pressure [Right] O2 Sat by Pulse 96 96 96 Oximetry 01/07/20 01/07/20 01/07/20 11:40 11:45 11:50 Temperature Pulse Rate 85 89 95 H Respiratory Rate Blood Pressure Blood Pressure [Right] O2 Sat by Pulse 96 96 97 Oximetry 01/07/20 01/07/20 01/07/20 11:55 12:00 12:05 Temperature Pulse Rate 101 H 97 H 97 H Respiratory Rate Blood Pressure Blood Pressure [Right] O2 Sat by Pulse 96 97 97 Oximetry 01/07/20 01/07/20 01/07/20 12:10 12:15 12:20 Temperature Pulse Rate 91 H 94 H 93 H Respiratory Rate Blood Pressure Blood Pressure [Right] O2 Sat by Pulse 96 98 96 Oximetry 01/07/20 01/07/20 01/07/20 12:25 12:30 12:35 Temperature Pulse Rate 97 H 93 H 93 H Respiratory Rate Blood Pressure Blood Pressure [Right] O2 Sat by Pulse 95 96 97 Oximetry 01/07/20 01/07/20 01/07/20 12:40 12:45 12:59 Temperature Pulse Rate 93 H 92 H 97 H Respiratory Rate Blood Pressure Blood Pressure [Right] O2 Sat by Pulse 97 96 96 Oximetry 01/07/20 01/07/20 13:00 13:06 Temperature Pulse Rate 97 H 87 Respiratory Rate Blood Pressure Blood Pressure [Right] O2 Sat by Pulse 82 L 78 L Oximetry - Labs Labs: Abnormal Labs 01/05/20 01/05/20 01/07/20 Unknown Unknown 06:19 MCHC 35 H POC Glucose 134 H Urine WBC (Auto) 117.0 H 01/07/20 12:33 MCHC POC Glucose 114 H Urine WBC (Auto) Laboratory Results - last 24 hr 01/07/20 01/07/20 06:19 12:33 POC Glucose 134 H 114 H
[2020-01-07] MEDS ORDERED: NALOXONE 2 MG/2 ML INJ IV PRN (13:37)
[2020-01-07] MEDS ORDERED: ePHEDrine SULFATE 50 MG/1 ML INJ IV PRN (13:37)
--- NOTE | 2020-01-07 13:37 | Anesthesia Consultation ---
Anesthesia Consult and Med Hx Date of service: 01/07/20 - Airway Anesthetic Teeth Evaluation: Good ROM Head & Neck: Adequate Mental/Hyoid Distance: Adequate Mallampati Class: Class II Intubation Access Assessment: Probably Good - Pulmonary Exam CTA: Yes - Cardiac Exam Cardiac Exam: RRR - Pre-Operative Health Status ASA Pre-Surgery Classification: ASA2 Proposed Anesthetic Plan: Epidural - Pulmonary Hx Asthma: No - Cardiovascular System Hx Hypertension: No - Central Nervous System Hx Seizures: No Hx Psychiatric Problems: No - Endocrine Hx Renal Disease: No Hx Hypothyroidism: No Hx Hyperthyroidism: No - Hematic Hx Anemia: No Hx Sickle Cell Disease: No - Other Systems Hx Alcohol Use: No
--- NOTE | 2020-01-07 15:04 | Progress Note ---
Labor Epidural - Labor Epidural Start Time: 04:55 Stop Time: 15:05 Performed by:: NIKI TABOR Procedure: Patient is requesting epidural for labor pain. H&P, and labs reviewed. Procedure explained, questions answered, consent obtained. Patient in sitting position with blood pressure cuff and pulse ox on and working. Timeout performed immediately before start of procedure. Sterile betadine prep/drape. 3 mL 1% lidocaine skin wheal at L[3]-L[4]. 18-gauge Social Moovtead epidural needle advanced to [id number] with saline at [7] cm. Epidural dexmedetomidine [30] mcg administered. Epidural catheter advanced to [12] cm, negative aspiration for blood and csf, negative test dose 3 ml 1.5% lidocaine with epinephrine. Sterile steri-strips and tegaderm applied, followed by tape reinforcement. Patient tolerated procedure well. Earle CABRALES
[2020-01-07] MEDS: fentaNYL-BUPIV 2 MCG/ML-0.125% 200 MCG/100 ML BAG EPIDURAL SCH ×2 (15:28→23:51)
[2020-01-07] MEDS ORDERED: AMPICILLIN/NS 2 GM/100 ML 2 GM/100 ML BAG IV ONE (23:24)
[2020-01-08] MEDS: LACTATED RINGERS 1,000 ML IV SCH ×2 (00:45→07:46)
[2020-01-08] MEDS: AMPICILLIN/NS 1 GM/50 ML 1 GM/50 ML BAG IV SCH ×2 (03:43→07:46)
[2020-01-08] MEDS: fentaNYL-BUPIV 2 MCG/ML-0.125% 200 MCG/100 ML BAG EPIDURAL SCH (06:25)
--- NOTE | 2020-01-08 09:23 | Progress Note ---
Subjective - Subjective Date of service: 01/08/20 Principal diagnosis: contractions Interval history: AOL in pain, cervix 4-5/100/0 desires epidural, anesthesia notifiedneeds rebolus of epidural ABX increase pitocin as per protocol CFM expect MALGORZATA Miles MD Patient reports: contractions (persistent) Objective - Vital Signs Vital Signs: Vital Signs - 12hr 01/07/20 01/07/20 01/07/20 21:23 21:24 21:29 Temperature Pulse Rate 70 70 74 Respiratory Rate Blood Pressure 103/59 O2 Sat by Pulse 97 98 Oximetry 01/07/20 01/07/20 01/07/20 21:34 21:38 21:39 Temperature Pulse Rate 60 64 71 Respiratory Rate Blood Pressure 111/58 O2 Sat by Pulse 97 96 Oximetry 01/07/20 01/07/20 01/07/20 21:44 21:49 21:52 Temperature Pulse Rate 71 67 63 Respiratory Rate Blood Pressure 111/58 O2 Sat by Pulse 97 96 Oximetry 01/07/20 01/07/20 01/07/20 21:54 21:59 22:04 Temperature Pulse Rate 70 69 66 Respiratory Rate Blood Pressure O2 Sat by Pulse 96 96 96 Oximetry 01/07/20 01/07/20 01/07/20 22:08 22:09 22:14 Temperature Pulse Rate 69 70 64 Respiratory Rate Blood Pressure 111/58 O2 Sat by Pulse 97 96 Oximetry 01/07/20 01/07/20 01/07/20 22:19 22:22 22:24 Temperature Pulse Rate 67 77 71 Respiratory Rate Blood Pressure 101/55 O2 Sat by Pulse 96 97 Oximetry 01/07/20 01/07/20 01/07/20 22:29 22:34 22:38 Temperature Pulse Rate 71 79 96 H Respiratory Rate Blood Pressure 124/68 O2 Sat by Pulse 98 95 93 Oximetry 01/07/20 01/07/20 01/07/20 22:39 22:44 22:49 Temperature Pulse Rate 70 82 85 Respiratory Rate Blood Pressure O2 Sat by Pulse 97 97 95 Oximetry 01/07/20 01/07/20 01/07/20 22:52 22:54 22:59 Temperature Pulse Rate 75 69 74 Respiratory Rate Blood Pressure 116/62 O2 Sat by Pulse 97 97 Oximetry 11/12/20 11/12/20 11/12/20 23:04 23:09 23:14 Temperature Pulse Rate 73 65 69 Respiratory Rate Blood Pressure O2 Sat by Pulse 98 98 97 Oximetry 01/07/20 01/07/20 01/07/20 23:19 23:23 23:24 Temperature Pulse Rate 68 60 73 Respiratory Rate Blood Pressure 101/50 O2 Sat by Pulse 98 97 Oximetry 01/07/20 01/07/20 01/07/20 23:29 23:34 23:38 Temperature Pulse Rate 73 59 L 68 Respiratory Rate Blood Pressure 135/64 O2 Sat by Pulse 96 98 Oximetry 01/07/20 01/07/20 01/07/20 23:39 23:44 23:49 Temperature Pulse Rate 81 68 77 Respiratory Rate Blood Pressure O2 Sat by Pulse 98 98 96 Oximetry 01/07/20 01/07/20 01/08/20 23:54 23:59 00:00 Temperature 98.1 F Pulse Rate 67 74 Respiratory Rate Blood Pressure 126/75 O2 Sat by Pulse 97 96 Oximetry 01/08/20 01/08/20 01/08/20 00:04 00:07 00:09 Temperature Pulse Rate 75 69 71 Respiratory Rate Blood Pressure 130/72 O2 Sat by Pulse 97 97 Oximetry 01/08/20 01/08/20 01/08/20 00:14 00:19 00:23 Temperature Pulse Rate 65 65 72 Respiratory Rate Blood Pressure 108/54 O2 Sat by Pulse 97 98 Oximetry 01/08/20 01/08/20 01/08/20 00:24 00:29 00:34 Temperature Pulse Rate 75 84 75 Respiratory Rate Blood Pressure O2 Sat by Pulse 96 97 98 Oximetry 01/08/20 01/08/20 01/08/20 00:37 00:39 00:44 Temperature Pulse Rate 75 73 71 Respiratory Rate Blood Pressure 113/55 O2 Sat by Pulse 97 97 Oximetry 01/08/20 01/08/20 01/08/20 00:49 00:54 00:59 Temperature Pulse Rate 75 77 68 Respiratory Rate Blood Pressure 121/57 O2 Sat by Pulse 96 96 97 Oximetry 01/08/20 01/08/20 01/08/20 01:04 01:08 01:09 Temperature Pulse Rate 70 75 73 Respiratory Rate Blood Pressure 125/70 O2 Sat by Pulse 97 96 Oximetry 01/08/20 01/08/20 01/08/20 01:14 01:19 01:24 Temperature Pulse Rate 78 73 75 Respiratory Rate Blood Pressure 132/63 O2 Sat by Pulse 97 98 97 Oximetry 01/08/20 01/08/20 01/08/20 01:29 01:34 01:37 Temperature Pulse Rate 72 77 76 Respiratory Rate Blood Pressure 123/61 O2 Sat by Pulse 97 97 Oximetry 01/08/20 01/08/20 01/08/20 01:39 01:44 01:49 Temperature Pulse Rate 77 81 74 Respiratory Rate Blood Pressure O2 Sat by Pulse 97 97 97 Oximetry 01/08/20 01/08/20 01/08/20 01:52 01:54 01:59 Temperature Pulse Rate 76 77 78 Respiratory Rate Blood Pressure 118/57 O2 Sat by Pulse 97 97 Oximetry 01/08/20 01/08/20 01/08/20 02:04 02:07 02:09 Temperature Pulse Rate 88 74 81 Respiratory Rate Blood Pressure 118/60 O2 Sat by Pulse 95 96 Oximetry 01/08/20 01/08/20 01/08/20 02:14 02:19 02:23 Temperature Pulse Rate 94 H 78 80 Respiratory Rate Blood Pressure 140/64 O2 Sat by Pulse 95 96 Oximetry 01/08/20 01/08/20 01/08/20 02:24 02:29 02:34 Temperature Pulse Rate 89 72 71 Respiratory Rate Blood Pressure O2 Sat by Pulse 96 97 97 Oximetry 01/08/20 01/08/20 01/08/20 02:38 02:39 02:44 Temperature Pulse Rate 74 77 78 Respiratory Rate Blood Pressure 111/54 O2 Sat by Pulse 97 96 Oximetry 01/08/20 01/08/20 01/08/20 02:49 02:52 02:54 Temperature Pulse Rate 75 64 71 Respiratory Rate Blood Pressure 105/53 O2 Sat by Pulse 96 96 Oximetry 01/08/20 01/08/20 01/08/20 02:59 03:04 03:08 Temperature Pulse Rate 70 71 71 Respiratory Rate Blood Pressure 119/58 O2 Sat by Pulse 96 95 Oximetry 01/08/20 01/08/20 01/08/20 03:09 03:14 03:16 Temperature Pulse Rate 64 71 68 Respiratory Rate Blood Pressure O2 Sat by Pulse 96 96 94 Oximetry 01/08/20 01/08/20 01/08/20 03:19 03:23 03:24 Temperature Pulse Rate 65 63 67 Respiratory Rate Blood Pressure 122/56 O2 Sat by Pulse 96 96 Oximetry 01/08/20 01/08/20 01/08/20 03:29 03:34 03:38 Temperature Pulse Rate 71 80 71 Respiratory Rate Blood Pressure 131/65 O2 Sat by Pulse 96 97 Oximetry 01/08/20 01/08/20 01/08/20 03:39 03:44 03:49 Temperature 98.1 F Pulse Rate 77 73 75 Respiratory 19 Rate Blood Pressure O2 Sat by Pulse 97 97 97 Oximetry 01/08/20 01/08/20 01/08/20 03:52 03:54 03:59 Temperature Pulse Rate 74 74 77 Respiratory Rate Blood Pressure 124/63 O2 Sat by Pulse 96 97 Oximetry 01/08/20 01/08/20 01/08/20 04:04 04:08 04:09 Temperature Pulse Rate 87 70 70 Respiratory Rate Blood Pressure 130/66 O2 Sat by Pulse 97 98 Oximetry 01/08/20 01/08/20 01/08/20 04:14 04:19 04:22 Temperature Pulse Rate 71 63 70 Respiratory Rate Blood Pressure 131/73 O2 Sat by Pulse 97 97 Oximetry 01/08/20 01/08/20 01/08/20 04:24 04:29 04:34 Temperature Pulse Rate 72 71 71 Respiratory Rate Blood Pressure O2 Sat by Pulse 97 97 96 Oximetry 01/08/20 01/08/20 01/08/20 04:38 04:39 04:44 Temperature Pulse Rate 58 L 63 84 Respiratory Rate Blood Pressure 125/62 O2 Sat by Pulse 96 98 Oximetry 01/08/20 01/08/20 01/08/20 04:49 04:53 04:54 Temperature Pulse Rate 74 70 75 Respiratory Rate Blood Pressure 133/76 O2 Sat by Pulse 98 98 Oximetry 01/08/20 01/08/20 01/08/20 04:59 05:04 05:09 Temperature Pulse Rate 70 61 67 Respiratory Rate Blood Pressure 125/68 O2 Sat by Pulse 98 97 97 Oximetry 01/08/20 01/08/20 01/08/20 05:14 05:19 05:22 Temperature Pulse Rate 61 64 63 Respiratory Rate Blood Pressure 116/67 O2 Sat by Pulse 97 96 Oximetry 01/08/20 01/08/20 01/08/20 05:24 05:29 05:34 Temperature Pulse Rate 68 68 69 Respiratory Rate Blood Pressure O2 Sat by Pulse 97 98 97 Oximetry 01/08/20 01/08/20 01/08/20 05:37 05:39 05:44 Temperature Pulse Rate 74 67 63 Respiratory Rate Blood Pressure 137/77 O2 Sat by Pulse 96 97 Oximetry 01/08/20 01/08/20 01/08/20 05:49 05:53 05:54 Temperature Pulse Rate 65 71 70 Respiratory Rate Blood Pressure 136/77 O2 Sat by Pulse 97 97 Oximetry 01/08/20 01/08/20 01/08/20 05:59 06:04 06:07 Temperature Pulse Rate 74 70 65 Respiratory Rate Blood Pressure 129/73 O2 Sat by Pulse 97 96 Oximetry 01/08/20 01/08/20 01/08/20 06:09 06:14 06:19 Temperature Pulse Rate 65 67 73 Respiratory Rate Blood Pressure O2 Sat by Pulse 96 96 98 Oximetry 01/08/20 01/08/20 01/08/20 06:24 06:29 06:34 Temperature Pulse Rate 67 57 L 68 Respiratory Rate Blood Pressure 147/64 O2 Sat by Pulse 99 98 94 Oximetry 01/08/20 01/08/20 01/08/20 06:39 06:44 06:45 Temperature Pulse Rate 69 60 72 Respiratory Rate Blood Pressure 135/68 O2 Sat by Pulse 96 96 94 Oximetry 01/08/20 01/08/20 01/08/20 06:49 06:53 06:54 Temperature Pulse Rate 73 69 65 Respiratory Rate Blood Pressure 159/91 O2 Sat by Pulse 97 96 Oximetry 01/08/20 01/08/20 01/08/20 06:55 06:59 07:04 Temperature Pulse Rate 71 66 64 Respiratory Rate Blood Pressure O2 Sat by Pulse 94 98 97 Oximetry 01/08/20 01/08/20 01/08/20 07:09 07:14 07:15 Temperature 98.2 F Pulse Rate 75 79 Respiratory 18 Rate Blood Pressure 140/72 O2 Sat by Pulse 97 99 Oximetry 01/08/20 01/08/20 01/08/20 07:19 07:24 07:29 Temperature Pulse Rate 74 74 79 Respiratory Rate Blood Pressure 145/73 O2 Sat by Pulse 97 96 96 Oximetry 01/08/20 01/08/20 01/08/20 07:34 07:37 07:39 Temperature Pulse Rate 83 66 69 Respiratory Rate Blood Pressure 154/77 O2 Sat by Pulse 98 96 Oximetry 01/08/20 01/08/20 01/08/20 07:44 07:49 07:54 Temperature Pulse Rate 65 58 L 60 Respiratory Rate Blood Pressure 124/73 O2 Sat by Pulse 97 97 97 Oximetry 01/08/20 01/08/20 01/08/20 07:59 08:04 08:08 Temperature Pulse Rate 68 56 L 60 Respiratory Rate Blood Pressure 116/65 O2 Sat by Pulse 96 96 Oximetry 01/08/20 01/08/20 01/08/20 08:09 08:14 08:19 Temperature Pulse Rate 56 L 62 55 L Respiratory Rate Blood Pressure O2 Sat by Pulse 96 96 96 Oximetry 01/08/20 01/08/20 01/08/20 08:22 08:24 08:29 Temperature Pulse Rate 62 54 L 54 L Respiratory Rate Blood Pressure 105/61 O2 Sat by Pulse 96 96 Oximetry 01/08/20 01/08/20 01/08/20 08:34 08:39 08:44 Temperature Pulse Rate 59 L 59 L 59 L Respiratory Rate Blood Pressure 113/59 O2 Sat by Pulse 96 96 96 Oximetry 01/08/20 01/08/20 01/08/20 08:49 08:53 08:54 Temperature Pulse Rate 58 L 57 L 61 Respiratory Rate Blood Pressure 112/68 O2 Sat by Pulse 96 95 Oximetry 01/08/20 01/08/20 01/08/20 08:59 09:01 09:04 Temperature Pulse Rate 63 63 55 L Respiratory Rate Blood Pressure O2 Sat by Pulse 95 94 95 Oximetry 01/08/20 01/08/20 01/08/20 09:06 09:08 09:09 Temperature Pulse Rate 68 64 64 Respiratory Rate Blood Pressure 116/61 O2 Sat by Pulse 94 95 Oximetry 01/08/20 01/08/20 01/08/20 09:14 09:15 09:19 Temperature Pulse Rate 62 62 62 Respiratory Rate Blood Pressure O2 Sat by Pulse 95 94 95 Oximetry 01/08/20 09:21 Temperature Pulse Rate 62 Respiratory Rate Blood Pressure O2 Sat by Pulse 94 Oximetry - Labs Labs: Abnormal Labs 01/05/20 01/05/20 01/07/20 Unknown Unknown 06:19 MCHC 35 H POC Glucose 134 H Urine WBC (Auto) 117.0 H 01/07/20 12:33 MCHC POC Glucose 114 H Urine WBC (Auto) Laboratory Results - last 24 hr 01/07/20 01/08/20 12:33 08:08 POC Glucose 114 H 86
--- NOTE | 2020-01-08 12:33 | Event Note ---
Date: 01/08/20 late entry at 11:30am patient noted to have a septum like piece of cerclage in the 12-6:oo position, easily reducible. The septum broke without incident with exam. At the completion of the exam patient noted to be 8cm/100%/0 station no bleeding continue current management expect MALGORZATA Miles MD
[2020-01-08] MEDS ORDERED: PROMETHAZINE 25 MG TAB PO PRN (13:56)
[2020-01-08] MEDS ORDERED: PROMETHAZINE 25 MG RECT SUPP PR PRN (13:56)
[2020-01-08] MEDS ORDERED: ACETAMINOPHEN 325 MG TAB PO PRN (13:56)
[2020-01-08] MEDS ORDERED: diphenhydrAMINE 25 MG CAP PO PRN (13:56)
[2020-01-08] MEDS ORDERED: ONDANSETRON 4 MG/2 ML INJ IV PRN (13:56)
[2020-01-08] MEDS ORDERED: WITCH HAZEL/ GLYCERIN PAD TP PRN (13:56)
[2020-01-08] MEDS ORDERED: MAGNESIUM HYDROXIDE (MOM) ORAL LIQD UDC PO PRN (13:56)
[2020-01-08] MEDS ORDERED: KETOROLAC 30 MG/1 ML INJ IV PRN (13:56)
[2020-01-08] MEDS ORDERED: LANOLIN/ZINC/DIMETHICONE (LANSINOH) 7 GM TP PRN (13:56)
[2020-01-08] MEDS ORDERED: HYDROcodone/ACETAMINOPHEN 5-325 MG TAB PO PRN (13:56)
--- NOTE | 2020-01-08 14:31 | Procedure Note ---
OB Delivery Note - Delivery Date of Delivery: 01/08/20 (6788) Surgeon: BRUCE SEYMOUR (CNM) Estimated blood loss: 500cc - Vaginal Delivery presentation: vertex Delivery position: OA (DAMIAN) Intrapartum events: labor-<37 weeks Delivery induction: oxytocin Delivery augmentation: rupture of membranes (AROM -0120) Delivery monitor: external FHT, external uterine Route of delivery: Delivery placenta: spontaneous (1350, land) Delivery cord: 3 umbilical vessels Episiotomy: none Delivery laceration: 1st degree Delivery repair: vicryl (3.0) Anesthesia: epidural Delivery comments: of viable, quiet female infant placed directly to maternal abdomen, NICU team at bedside. Cord double clamped and cut by myself and handed over to awaiting NICU team for evaluation. Placenta spontaneously delivered, shanda, sent to pathology secondary to PTD. Uterus firm @ U-1, hemostasis maintained. 1st degree perineal laceration, repaired. Mother safe, stable and left in care of RN. Infant transported to NICU by Peds team. - A at 1 minute: 8 at 5 minutes: 9 Gender: Female (Weight: 2048 gms (4lbs 8.2 ozs) 18 inches)
[2020-01-08] MEDS: IBUPROFEN 600 MG TAB PO SCH (18:43)
[2020-01-08] MEDS: SENNOSIDES/DOCUSATE SODIUM 8.6/50 MG TAB PO SCH (21:51)
[2020-01-08] MEDS: DOCUSATE SODIUM 100 MG CAP PO SCH (21:51)
[2020-01-09] MEDS: cefTRIAXone/NS 1 GM/50 ML 1 GM/50 ML BAG IV SCH (00:08)
[2020-01-09] MEDS: IBUPROFEN 600 MG TAB PO SCH ×4 (00:19→18:33)
[2020-01-09] MEDS: FERROUS SULFATE 325 MG TAB PO SCH ×2 (01:25→18:34)
[2020-01-09 01:57] LABS: Hematocrit 27.2 % (30.3-42.9); Hemoglobin 9.3 gm/dl (10.1-14.3)
--- NOTE | 2020-01-09 13:44 | Progress Note ---
Assessment and Plan A: day 1 S/P . Anemia. P: Continue iron supplementation. Anticipate discharge home tomorrow if patient continues to do well. Subjective - Subjective Date of service: 01/09/20 Principal diagnosis: day 1 S/P Patient reports: appetite normal, voiding normally, pain well controlled, flatus, ambulating normally, no dizzy ambulation, no nauseated : doing well Objective - Vital Signs Latest vital signs: Vital Signs Temp Pulse Resp BP Pulse Ox 01/09/20 11:57 97.9 F 85 20 117/67 97 01/09/20 08:08 97.7 F 78 20 118/68 99 01/09/20 06:32 18 01/09/20 05:35 16 01/09/20 05:04 98.5 F 83 20 110/59 96 01/09/20 01:19 18 01/09/20 00:29 98.9 F 88 20 100/51 95 01/09/20 00:19 18 01/08/20 20:56 98.5 F 115 H 20 122/80 95 01/08/20 19:43 18 01/08/20 16:32 99.3 F 99 H 18 120/75 99 01/08/20 15:00 98.3 F 01/08/20 14:49 83 99 01/08/20 14:48 89 136/66 01/08/20 14:44 86 99 01/08/20 14:39 90 98 01/08/20 14:34 47 L 100 01/08/20 14:33 91 H 142/69 01/08/20 14:29 89 98 01/08/20 14:24 87 100 01/08/20 14:19 92 H 99 01/08/20 14:18 103 H 142/75 01/08/20 14:14 88 97 01/08/20 14:09 105 H 97 01/08/20 14:04 107 H 95 01/08/20 14:00 98.8 F 01/08/20 13:59 94 H 99 01/08/20 13:54 92 H 97 01/08/20 13:52 99 H 94 01/08/20 13:49 90 146/75 98 01/08/20 13:44 110 H 99 Intake and Output 01/08/20 01/09/20 01/09/20 23:59 07:59 15:59 Intake Total 600 240 Output Total 500 Balance -500 600 240 Intake: Oral 120 240 Intake, Free Water 480 Output: Urine 500 Void 500 Other: Total, Intake Amount 120 240 Total, Output Amount 500 # Voids Void 1 1 1 - Exam Cardiovascular: Present: Regular rate, No murmurs Lungs: Present: Clear to auscultation Abdomen: Present: normal appearance, soft, normal bowel sounds. Absent: distention, tenderness, guarding, rigidity Uterus: Present: normal, firm, fundal height below umbilicus. Absent: bogginess, tenderness Extremities: Present: normal. Absent: edema - Labs Labs: Abnormal lab results 01/08/20 01/09/20 Range/Units 22:39 01:13 Hgb 9.3 L (10.1-14.3) gm/dl Hct 27.2 L (30.3-42.9) % POC Glucose 140 H (70-105) mg/dL
[2020-01-09] MEDS: PRENATAL VIT27-FE FUMARATE-FOLIC ACID VIT TAB PO SCH (18:33)
[2020-01-09] MEDS: DOCUSATE SODIUM 100 MG CAP PO SCH (18:34)
[2020-01-10] MEDS: IBUPROFEN 600 MG TAB PO SCH ×3 (00:37→18:12)
[2020-01-10] MEDS: DOCUSATE SODIUM 100 MG CAP PO SCH ×2 (03:55→10:16)
[2020-01-10] MEDS: SENNOSIDES/DOCUSATE SODIUM 8.6/50 MG TAB PO SCH (10:16)
[2020-01-10] MEDS: cefTRIAXone/NS 1 GM/50 ML 1 GM/50 ML BAG IV SCH (10:16)
[2020-01-10] MEDS: FERROUS SULFATE 325 MG TAB PO SCH (10:16)
[2020-01-10] MEDS: PRENATAL VIT27-FE FUMARATE-FOLIC ACID VIT TAB PO SCH (10:16)
--- NOTE | 2020-01-10 12:57 | Post Anesthesia Evaluation ---
- Post Anesthesia Evaluation Patient Participated: Yes Airway Patent: Yes Stable Respiratory Function: Yes Nausea/Vomiting: No Temp > 96.8F: Yes Pain Manageable: Yes Adequeate Hydration: Yes Anesthesia Complications: No Block Receding Appropriately: Yes
--- NOTE | 2020-01-10 14:23 | Progress Note ---
Assessment and Plan A: day 2 S/P . Anemia. P: Continue iron supplementation. Anticipate discharge home tomorrow. Subjective - Subjective Date of service: 01/10/20 Principal diagnosis: day 2 S/P Interval history: Baby is under bili-lights. Patient requests to stay until tomorrow due to baby needing to stay. Patient reports: appetite normal, voiding normally, pain well controlled, f latus, ambulating normally, no dizzy ambulation, no nauseated [place]: doing well, other () Objective - Vital Signs Latest vital signs: Vital Signs Temp Pulse Resp BP Pulse Ox 01/10/20 07:53 98.0 F 71 16 114/54 95 01/10/20 01:47 98.2 F 72 18 135/59 95 01/09/20 15:37 98.2 F 85 20 107/62 98 Intake and Output 01/09/20 01/10/20 01/10/20 23:59 07:59 15:59 Intake Total 240 240 360 Balance 240 240 360 Intake: Oral 240 240 360 Other: Total, Intake Amount 240 240 120 # Voids Void 1 1 1 - Exam Cardiovascular: Present: Regular rate, No murmurs Lungs: Present: Clear to auscultation Abdomen: Present: normal appearance, soft. Absent: distention, tenderness, guarding, rigidity Uterus: Present: normal, firm, fundal height below umbilicus. Absent: bogginess, tenderness Extremities: Present: normal. Absent: tenderness, edema
[2020-01-10 17:01] VITALS: BP 122/66
--- NOTE | 2020-01-10 17:15 | Discharge Summary ---
Providers - Providers Date of Admission: 01/05/20 15:57 Date of discharge: 01/10/20 Attending physician: KARMA ELLISON Primary care physician: KARMA ELLISON Hospitalization Reason for admission: active labor Delivery: Laceration: 1st degree Other procedures: none complications: none Discharge diagnosis: delivery baby: female Pertinent studies: Labs Hospital course: Normal hospital course Condition at discharge: Good Disposition: DC-01 TO HOME OR SELFCARE - Discharge Diagnoses (1) delivery Status: Acute (2) Anemia Status: Acute Plan - Provider Discharge Summary Activity: routine, no sex for 6 weeks, no heavy lifting 4 weeks, no strenuous exercise Diet: routine Instructions: routine Additional instructions: Continue taking your vitamins and iron supplements at home. Follow up in 2 weeks at [facility]. Call your doctor immediately for: * Fever > 100.5 * Heavy vaginal bleeding ( >1 pad per hour) * Severe persistent headache * Shortness of breath * Reddened, hot, painful area to leg or breast - Follow up plan Follow up: KARMA ELLISON MD [Primary Care Provider] - 14 Days
== END 2020-01-10 22:45 | disposition home or self-care (01) | DRG 775 ==
LOC: TRG 13:55 → APU 13:56 → TRG 15:57 → LD 15:58 → OB 01-08 16:00
PROVIDERS: ADMIT Obstetrics & Gynecology; ATTEND Obstetrics & Gynecology
PROC: 3E0R3BZ Introduction of Anesthetic Agent into Spinal Canal, Percutaneous Approach (ICD-10-PCS; 2020-01-07)
PROC: 00HU33Z Insertion of Infusion Device into Spinal Canal, Percutaneous Approach (ICD-10-PCS; 2020-01-07)
PROC: 10E0XZZ Delivery of Products of Conception, External Approach (ICD-10-PCS; principal; 2020-01-08)
PROC: 10907ZC Drainage of Amniotic Fluid, Therapeutic from Products of Conception, Via Natural or Artificial Opening (ICD-10-PCS; 2020-01-08)
PROC: 0HQ9XZZ Repair Perineum Skin, External Approach (ICD-10-PCS; 2020-01-08)
PROC: 3E033VJ Introduction of Other Hormone into Peripheral Vein, Percutaneous Approach (ICD-10-PCS; 2020-01-08)
DX: O60.14X0 Preterm labor third trimester with preterm delivery third trimester, not applicable or unspecified (principal); Z37.0 Single live birth; O34.33 Maternal care for cervical incompetence, third trimester; Z3A.34 34 weeks gestation of pregnancy; Z20.828 Contact with and (suspected) exposure to other viral communicable diseases; O70.0 First degree perineal laceration during delivery; O90.81 Anemia of the puerperium; D64.9 Anemia, unspecified
CPT/HCPCS: 36415; 76815; 81001; 82962; 85014; 85018; 85027; 86592; 86850; 86900; 86901; 87086; 88307; G0378; J0290; J0595; J0696; J0702; J2270; J2405; J2590; J3010; J7120; Q0169; U0003

== ENCOUNTER 2021-07-01 03:04 | Outpatient (CLI) | payer MEDICAID ==
[2021-07-01 03:24] VITALS: BP 117/68
[2021-07-01] MEDS ORDERED: LACTATED RINGERS 500 ML IV ONE (03:33)
[2021-07-01] MEDS ORDERED: MORPHINE 2 MG/1 ML INJ IM ONE (03:52)
--- NOTE | 2021-07-01 04:55 | Ultrasound Report ---
ULTRASOUND OBSTETRIC LIMITED ULTRASOUND BIOPHYSICAL PROFILE INDICATION / CLINICAL INFORMATION: wellbeing and ptl. Clinical Gestational Age (GA) in weeks, days: 31, 0 TECHNIQUE: Transabdominal. COMPARISON: None available. FINDINGS: BREATHING MOVEMENT = 2 GROSS BODY MOVEMENT = 2 TONE = 2 QUALITATIVE AMNIOTIC FLUID VOLUME = 2 TOTAL BIOPHYSICAL SCORE = 8/8 HEART RATE (beats per minute): 149 AMNIOTIC FLUID INDEX (cm) = 6.0 (normal = 7-24 cm) PRESENTATION: Cephalic. ADDITIONAL FINDINGS: None. IMPRESSION: 1. Biophysical Score = 8/8 2. Slight oligohydramnios. Signer Name: Som Chanel DO Signed: 07/01/2021 4:50 AM Workstation Name: [id number]
== END 2021-07-01 05:00 | disposition home or self-care (01) ==
LOC: TRG 03:04 → APU 03:05 → TRG 05:00
PROVIDERS: ATTEND Obstetrics & Gynecology
DX: O41.03X0 Oligohydramnios, third trimester, not applicable or unspecified (principal); O62.9 Abnormality of forces of labor, unspecified; O24.419 Gestational diabetes mellitus in pregnancy, unspecified control; O09.523 Supervision of elderly multigravida, third trimester; Z87.891 Personal history of nicotine dependence; Z3A.31 31 weeks gestation of pregnancy
CPT/HCPCS: 76815; 76819; 96372; J2270

== ENCOUNTER 2021-07-18 12:18 | Outpatient (CLI) | payer MEDICAID ==
[2021-07-18 14:26] VITALS: BP 102/64
== END 2021-07-18 16:28 | disposition home or self-care (01) ==
LOC: APU 12:18 → TRG 12:18 → APU 12:27 → TRG 16:28
PROVIDERS: ATTEND Obstetrics & Gynecology
DX: O09.893 Supervision of other high risk pregnancies, third trimester (principal); Z3A.33 33 weeks gestation of pregnancy
CPT/HCPCS: 36415; 59025; 84112

== ENCOUNTER 2021-08-08 23:13 | Inpatient (IN) | payer MEDICAID ==
[2021-08-08] MEDS ORDERED: METHYLERGONOVINE MALEATE 0.2 MG/ML VIAL IM PRN (23:19)
[2021-08-08] MEDS ORDERED: LOPERAMIDE 2 MG CAP PO PRN (23:19)
[2021-08-08] MEDS ORDERED: miSOPROStol 200 MCG TAB PR PRN (23:19)
[2021-08-08] MEDS ORDERED: LIDOCAINE (2%) 20 MG/1 ML VIAL 20 ML MDV INFILTRATI ONE (23:19)
[2021-08-08] MEDS ORDERED: NalbUPHINE 10 MG/1 ML INJ IV PRN (23:19)
[2021-08-08] MEDS ORDERED: CARBOPROST TROMETHAMINE 250 MCG/1 ML INJ IM PRN (23:19)
[2021-08-08] MEDS ORDERED: BUTORPHANOL 2 MG/1 ML INJ IV PRN ×3 (23:19→23:55)
[2021-08-08] MEDS ORDERED: fentaNYL 100 MCG/2 ML INJ IV PRN (23:19)
[2021-08-08] MEDS ORDERED: TERBUTALINE 1 MG/1 ML INJ SUB-Q PRN (23:19)
[2021-08-08] MEDS ORDERED: ePHEDrine SULFATE 50 MG/1 ML INJ IV PRN (23:19)
[2021-08-08] MEDS ORDERED: ACETAMINOPHEN 325 MG TAB PO PRN (23:19)
[2021-08-08] MEDS ORDERED: OXYTOCIN 10 UNIT/1 ML INJ IM PRN (23:19)
[2021-08-08] MEDS ORDERED: MINERAL OIL 30 ML ORAL LIQD PO PRN (23:19)
[2021-08-08] MEDS ORDERED: LACTATED RINGERS 1,000 ML IV SCH (23:30)
[2021-08-08 23:38] LABS: Hematocrit 33.1 % (30.3-42.9); Hemoglobin 11.6 gm/dl (10.1-14.3); Mean Corpuscular HGB Conc 35 % (30-34); Mean Corpuscular Volume 89 fl (79-97); Platelet Count 380 K/mm3 (140-440); Red Blood Count 3.73 M/mm3 (3.65-5.03); Red Cell Distribution Width 16.3 % (13.2-15.2)
[2021-08-08] MEDS ORDERED: OXYTOCIN DRIP 30 UNITS/500 ML BAG IV SCH ×2 (23:45)
--- NOTE | 2021-08-08 23:51 | History and Physical Report ---
History of Present Illness Date of examination: 08/08/21 Date of admission: 08/08/21 23:20 Chief complaint: Contractions and leaking of fluid History of present illness: 41-year-old at 36-3/7 weeks gestation presents to OB triage reporting regular and painful uterine contractions every 5 minutes with leaking of fluid that occurred thereafter. There is no vaginal bleeding. There is good movement. The patient has a history of cervical insufficiency, and she has a cerclage in place. Cervix was noted to be 5 cm dilated and cerclage was palpated. As this patient is in labor with a cerclage in place, admit to labor and delivery for further evaluation management. Past History Past Medical History: no pertinent history Past Surgical History: other (Placement of a Waddell cerclage) Family/Genetic History: none Social history: no significant social history - Obstetrical History Expected Date of Delivery: 09/02/21 Actual Gestation: 36 Week(s) 4 Day(s) : 4 Para: 2 Hx # Term Pregnancies: 2 Number of Pregnancies: 2 Medications and Allergies Allergies Allergy/AdvReac Type Severity Reaction Status Date / Time No Known Allergies Allergy Verified 07/01/21 03:32 Home Medications Medication Instructions Recorded Confirmed Last Taken Type Hydroxyprogesterone Caproate 250 mg IM 1XW 06/02/21 06/02/21 05/30/21 History [[employer]] Docusate Sodium [Colace] 100 mg PO BID PRN 30 Days #60 06/04/21 Unknown Rx capsule Progesterone, Micronized 200 mg VG QPM #30 cap 06/04/21 Unknown Rx [Progesterone] Active Meds: Active Medications Acetaminophen (Acetaminophen 325 Mg Tab) 650 mg PO Q4H PRN PRN Reason: Pain, Mild (1-3) Butorphanol Tartrate (Butorphanol 2 Mg/1 Ml Inj) 1 mg IV Q2H PRN PRN Reason: Pain, Moderate(4-6) LABOR PAIN Butorphanol Tartrate (Butorphanol 2 Mg/1 Ml Inj) 2 mg IV Q2H PRN PRN Reason: Pain , Severe (7-10) Carboprost Tromethamine (Carboprost Tromethamine 250 Mcg/1 Ml Inj) 250 mcg IM ONCE PRN PRN Reason: Uterine Bleeding Ephedrine Sulfate (Ephedrine Sulfate 50 Mg/1 Ml Inj) 10 mg IV Q2M PRN PRN Reason: Hypotension Fentanyl (Fentanyl 100 Mcg/2 Ml Inj) 100 mcg IV Q2H PRN PRN Reason: Pain,Severe (7-10) LABOR PAIN Oxytocin/Sodium Chloride (Pitocin/Ns 30 Unit/500ml) 30 units in 500 mls @ 2 mls/hr IV TITR JENNY; Protocol Lactated Ringer's (Lactated Ringers) 1,000 mls @ 125 mls/hr IV DIRECT JENNY Oxytocin/Sodium Chloride (Pitocin/Ns 30 Unit/500ml) 30 units in 500 mls @ 40 mls/hr IV TITR JENNY; Protocol Loperamide HCl (Loperamide 2 Mg Cap) 2 mg PO ONCE PRN PRN Reason: give with Hemabate Methylergonovine Maleate (Methylergonovine Maleate 0.2 Mg/Ml Vial) 0.2 mg IM ONCE PRN PRN Reason: Uterine Bleeding Mineral Oil (Mineral Oil 30 Ml Oral Liqd) 30 ml PO QHS PRN PRN Reason: Constipation Misoprostol (Misoprostol 200 Mcg Tab) 800 mcg PA ONCE PRN PRN Reason: Uterine Bleeding Nalbuphine HCl (Nalbuphine 10 Mg/1 Ml Inj) 10 mg IV Q2H PRN PRN Reason: Pain, Moderate (4-6) Oxytocin (Oxytocin 10 Unit/1 Ml Inj) 10 unit IM ONCE PRN PRN Reason: Uterine Bleeding Terbutaline Sulfate (Terbutaline 1 Mg/1 Ml Inj) 0.25 mg SUB-Q ONCE PRN PRN Reason: Hyperstimulation/Hypertonicity Review of Systems All systems: negative - Vital Signs Vital signs: Vital Signs Pulse Pulse Ox 90 99 08/08/21 23:18 08/08/21 23:18 Temp Pulse Resp BP Pulse Ox 93 H 14 96 08/08/21 23:48 08/08/21 23:23 08/08/21 23:48 - Physical Exam Breasts: Positive: normal Cardiovascular: Regular rate Lungs: Positive: Normal air movement Abdomen: Positive: normal appearance Genitourinary (Female): Positive: normal external genitalia, normal perenium Vulva: both: normal Vagina: Positive: normal moisture Uterus: Positive: enlarged Adnexa: both: normal Anus/Rectum: Positive: normal perianal skin, hemorrhoids Extremities: Positive: normal Deep Tendon Reflex Grade: Normal +2 - Obstetrical FHR: category 1 Uterine Contraction Monitor Mode: External Cervical Dilatation: 5 Cervical Effacement Percentage: 80 station: 0 Uterine Contraction Frequency (min): 5 Uterine Contraction Pattern: Regular Uterine Contraction Intensity: Moderate Results Result Diagrams: 08/08/21 23:10 Abnormal lab results 08/08/21 Range/Units 23:10 WBC 11.1 H (4.5-11.0) K/mm3 MCHC 35 H (30-34) % RDW 16.3 H (13.2-15.2) % All other labs normal. Ultrasound: image reviewed (OB US Limited= SLIUP. Vertex. Posterior placenta. EFW= 1921 g (<1st %-ile). MONIQUE= 8.6 cm.) Assessment and Plan - Patient Problems (1) 36 weeks gestation of Current Visit: Yes Status: Acute Plan to address problem: care is up-to-date at [facility]. As this patient is below 37 weeks, prescribed intravenous penicillin for intrapartum GBS prophylaxis. (2) labor in third trimester Current Visit: Yes Status: Acute Plan to address problem: This patient is less than 37 weeks and is 5 cm dilated in labor. Prescribed a course of glucocorticoids as this patient fulfills the ALPS study protocol criteria. Augment with Pitocin after cerclage was removed. (3) growth restriction Current Visit: Yes Status: Acute Plan to address problem: Etiology is unknown. The patient is followed by maternal- medicine. NICU to be in attendance. (4) Gestational diabetes mellitus (GDM) controlled on oral hypoglycemic drug Current Visit: Yes Status: Acute Plan to address problem: The patient takes metformin 500 mg twice a day at home. Random Accu-Chek is 101. Check Accu-Cheks every 1 hour now that this patient is an active labor. No metformin once patient is an intrapartum status. Prescribe Lantus 24 units subcutaneously x1. Change IV fluids to normal saline. Plan is to keep glucoses between 79 and 99. (5) History of IUFD Current Visit: Yes Status: Acute Plan to address problem: The patient has a history of intrauterine demise. (6) AMA (advanced maternal age) multigravida 35+ Current Visit: Yes Status: Acute Plan to address problem: The patient was seen by maternal- medicine. The patient had a normal MaterniT-21 cfDNA testing. (7) Cervical insufficiency during in third trimester, antepartum Current Visit: No Status: Acute Plan to address problem: The patient has a Waddell's cerclage in place. As this patient is an active labor and membranes ruptured, remove cercla ge after epidural placement. (8) Rubella non-immune status, antepartum Current Visit: Yes Status: Acute Plan to address problem: Vaccinate .
[2021-08-09] MEDS ORDERED: PENICILLIN G POTASSIUM 5 MIL.UNITS in SODIUM CHLORIDE 0.9% 100 ML IV ONE (00:35)
--- NOTE | 2021-08-09 00:59 | Anesthesia Consultation ---
Anesthesia Consult and Med Hx Date of service: 08/09/21 - Airway Anesthetic Teeth Evaluation: Poor ROM Head & Neck: Adequate Mental/Hyoid Distance: Adequate Mallampati Class: Class II Intubation Access Assessment: Probably Good - Pulmonary Exam CTA: Yes - Cardiac Exam Cardiac Exam: RRR - Pre-Operative Health Status ASA Pre-Surgery Classification: ASA2 Proposed Anesthetic Plan: Epidural - Pulmonary Hx Smoking: No Hx Asthma: No COPD: No Hx Pneumonia: No - Cardiovascular System Hx Hypertension: No - Central Nervous System Hx Seizures: No Hx Psychiatric Problems: No - Endocrine Hx Renal Disease: No Hx End Stage Renal Disease: No Hx Hypothyroidism: No Hx Hyperthyroidism: No - Hematic Hx Anemia: Yes Hx Sickle Cell Disease: No - Other Systems Hx Alcohol Use: No
[2021-08-09] MEDS ORDERED: BETAMET ACET/BETAMET NA PH 6 MG/ML INJ 5 ML MDV IM SCH (01:00)
--- NOTE | 2021-08-09 01:03 | Progress Note ---
Labor Epidural - Labor Epidural Start Time: 00:22 Stop Time: 00:28 Performed by:: TONO CAMARILLO Procedure: Patient is requesting epidural for labor pain. H&P and labs reviewed. Procedure explained, questions answered, consent obtained. Patient placed in sitting position with monitors applied. Timeout performed immediately before start of procedure. Prep/drape in usual sterile fashion. Skin localized 3 mL 1% lidocaine at L[3]-L[4] interspace. 17-gauge Touhy epidural needle advanced to TUCKER with saline at [4] cm X 1 attempt. No blood/CSF noted via epidural needle. Epidural catheter advanced to [6] cm. Negative aspiration for blood and CSF via catheter, negative response to test dose 3 ml 1.5% lidocaine w/ Epi. Sterile dressing applied followed by tape reinforcement. Patient tolerated procedure well. No immediate complications noted.
[2021-08-09] MEDS ORDERED: SODIUM CHLORIDE 0.9% 1000 ML 1,000 ML VG SCH ×2 (02:00)
--- NOTE | 2021-08-09 02:07 | Operative Report ---
Operative Report Operative Report: After adequate epidural anesthesia, a lighted speculum was placed in the patient's vagina to visualize the cervical cerclage. Membranes were noted to have been already ruptured. A #2 Ethibond cerclage with multiple knots was noted at the 1 o'clock position, but noted to be very loose. Under direct visualization, that Ethibond suture was cut below the lowest knot. The cerclage was pulled out without difficulty. The cerclage was sent for gross pathologic examination. Speculum was removed the patient's vagina. The patient tolerated the procedure well. IUPC and FSE were placed. Cervical exam was 6 cm dilated.
[2021-08-09] MEDS ORDERED: SODIUM CHLORIDE 0.9% 1000 ML 1,000 ML IV SCH (02:30)
[2021-08-09] MEDS ORDERED: INSULIN GLARGINE 100 UNITS/ML SUB-Q ONE (02:55)
[2021-08-09] MEDS ORDERED: ePHEDrine SULFATE 50 MG/1 ML INJ IV PRN (03:02)
[2021-08-09] MEDS ORDERED: NALOXONE 0.4 MG/1 ML INJ IV PRN (03:02)
--- NOTE | 2021-08-09 03:21 | Ultrasound Report ---
US OB follow up INDICATION / CLINICAL INFORMATION: EFW, MONIQUE COMPARISON: Limited OB ultrasound 07/01/2021 TECHNIQUE: Using a transcutaneous probe, multiple grayscale, color Doppler, and spectral Doppler imag es of the uterus and fetus were captured and stored. FINDINGS: Single cephalic fetus heart rate 135 bpm. Amniotic fluid index is within normal limits measuring 8.6 cm. Biparietal Diameter = 8.3 cm = 33, 3 weeks, days Head Circumference = 29.9 cm = 33, 0 weeks, days Abdominal Circumference = 27.9 cm = 32, 0 weeks, days Femur Length = 6.2 cm = 32, 0 weeks, days Average Ultrasound Age (AUA) = 32, 4 weeks, days. EDC 09/30/2021. Clinical estimated gestational age based on last menstrual period of 11/26/2020 Mr. 6 weeks 4 days. Estimated weight = 1921 g. Growth percentile not calculated.. IMPRESSION: 1. Single living fetus with normal amniotic fluid index and estimated age of 32 weeks 4 days ba sed on current ultrasound. Signer Name: Merrick Esparza II, MD Signed: 08/09/2021 3:17 AM Workstation Name: [id number]
[2021-08-09] MEDS ORDERED: fentaNYL-BUPIV 2 MCG/ML-0.125% 200 MCG/100 ML BAG EPIDURAL SCH (04:00)
[2021-08-09] MEDS ORDERED: PENICILLIN G POTASSIUM 2.5 MIL.UNITS in SODIUM CHLORIDE 0.9% 50 ML IV SCH (04:00)
[2021-08-09] MEDS ORDERED: LACTATED RINGERS 1,000 ML ONE (05:06)
--- NOTE | 2021-08-09 08:44 | Procedure Note ---
OB Delivery Note - Delivery Date of Delivery: 08/09/21 Surgeon: ANJANA LARA Estimated blood loss: 300cc - Vaginal Delivery presentation: vertex Delivery position: OA Intrapartum events: other(please specify) (cerclage removal by Dr. Steinberg prior to delivery with pt dilated at 6cm; Irreg S-shaped cervical shape on the left without laceration seen) Delivery induction: none Delivery augmentation: pitocin Delivery monitor: external FHT, external uterine, internal FHT, internal uterine Route of delivery: Delivery placenta: spontaneous Delivery cord: 3 umbilical vessels Episiotomy: none Delivery laceration: none Anesthesia: none Delivery comments: SAVD of small viable female with left hand below the chin and nuchal and body cord x1 and baby delivered thru same. Spontaneous delivery of intact placenta with 3vessel cord. Bimanual exam with uterine fundus firm. EBL 300cc and pt stable - A at 1 minute: 8 at 5 minutes: 9 Infant Gender: Female (wt 2100g)
[2021-08-09] MEDS ORDERED: WITCH HAZEL/ GLYCERIN PAD TP PRN (12:49)
[2021-08-09] MEDS ORDERED: diphenhydrAMINE 25 MG CAP PO PRN (12:49)
[2021-08-09] MEDS ORDERED: LANOLIN/ZINC/DIMETHICONE (LANSINOH) 7 GM TP PRN (12:49)
[2021-08-09] MEDS ORDERED: PROMETHAZINE 25 MG TAB PO PRN (12:49)
[2021-08-09] MEDS ORDERED: BENZOCAINE/MENTHOL 20/0.5% TOP SPRAY 56 GM TP PRN (12:49)
[2021-08-09] MEDS ORDERED: ACETAMINOPHEN 325 MG TAB PO PRN (12:49)
[2021-08-09] MEDS ORDERED: HYDROCORTISONE 25 MG RECTAL SUPP PR PRN (12:49)
[2021-08-09] MEDS ORDERED: PROMETHAZINE 25 MG RECT SUPP PR PRN (12:49)
[2021-08-09] MEDS ORDERED: miSOPROStol 100 MCG TAB PR PRN (12:49)
[2021-08-09] MEDS ORDERED: MAGNESIUM HYDROXIDE (MOM) ORAL LIQD UDC PO PRN (12:49)
[2021-08-09] MEDS ORDERED: oxyCODONE /ACETAMINOPHEN 5-325MG TAB PO PRN (12:49)
[2021-08-09] MEDS ORDERED: ONDANSETRON 4 MG/2 ML INJ IV PRN (12:49)
[2021-08-09] MEDS ORDERED: OXYTOCIN DRIP 30 UNITS/500 ML BAG IV SCH (12:49)
[2021-08-09] MEDS: PRENATAL VIT27-FE FUMARATE-FOLIC ACID VIT TAB PO SCH (13:13)
[2021-08-09] MEDS: IBUPROFEN 800 MG TAB PO SCH ×2 (13:13→20:19)
[2021-08-09 21:08] LABS: Hematocrit 30.4 % (30.3-42.9); Hemoglobin 10.1 gm/dl (10.1-14.3)
[2021-08-10] MEDS: IBUPROFEN 800 MG TAB PO SCH ×3 (01:49→16:32)
[2021-08-10] MEDS: PRENATAL VIT27-FE FUMARATE-FOLIC ACID VIT TAB PO SCH (09:20)
--- NOTE | 2021-08-10 09:37 | Progress Note ---
Assessment and Plan A: PP Day #1 Asymptomtic Anemia GDM P: Follow Routine Orders FeSO4 325mg PO once daily Regular Diet changed to GDM Diet Restarted Metformin 500mg PO 1XD Continue Accucheck as ordered Subjective - Subjective Date of service: 08/10/21 Patient reports: appetite normal, voiding normally, pain well controlled, flatus, ambulating normally, other (States she was on Metformin 500mg once daily during prenancy) : in NICU, bottle feeding ([facility] at bedside; states she is pumping for the baby) Objective - Vital Signs Latest vital signs: Vital Signs Temp Pulse Resp BP BP Pulse Ox Pulse Ox 08/10/21 08:12 98.0 F 65 20 130/67 96 08/10/21 05:28 98.1 F 72 18 109/54 100 08/10/21 01:37 98.0 F 74 18 106/66 98 08/09/21 20:30 98.0 F 52 L 18 114/57 99 08/09/21 19:45 100 08/09/21 16:11 98.6 F 73 20 94/61 99 08/09/21 12:45 97.2 F L 72 18 106/53 96 08/09/21 12:40 96 08/09/21 10:47 77 76 L 08/09/21 10:43 78 99 08/09/21 10:38 65 98 08/09/21 10:33 75 98 08/09/21 10:28 59 L 98 08/09/21 10:23 69 97 08/09/21 10:20 56 L 98/50 08/09/21 10:18 55 L 98 08/09/21 10:13 65 99 08/09/21 10:08 58 L 98 08/09/21 10:03 55 L 98 08/09/21 09:58 57 L 98 08/09/21 09:53 51 L 98 08/09/21 09:50 51 L 98/51 08/09/21 09:48 54 L 99 08/09/21 09:43 51 L 100 08/09/21 09:38 57 L 100 08/09/21 09:35 98.4 F 18 08/09/21 09:33 54 L 100 Intake and Output 08/09/21 08/10/21 08/10/21 22:59 06:59 14:59 Intake Total 780 240 Output Total 1700 Balance -920 240 Intake: Oral 780 240 Output: Urine 1700 Indwelling Catheter 1300 Void 400 Other: Total, Intake Amount 360 120 Total, Output Amount 300 # Voids Void 1 1 - Exam Breasts: Present: normal Cardiovascular: Present: Regular rate Lungs: Present: Clear to auscultation, Normal air movement Abdomen: Present: normal appearance, soft, normal bowel sounds Uterus: Present: normal, firm, fundal height below umbilicus Extremities: Present: normal
[2021-08-10] MEDS ORDERED: FERROUS SULFATE 325 MG TAB PO SCH (10:00)
--- NOTE | 2021-08-10 11:19 | Post Anesthesia Evaluation ---
- Post Anesthesia Evaluation Patient Participated: Yes Airway Patent: Yes Stable Respiratory Function: Yes Nausea/Vomiting: No Temp > 96.8F: Yes Pain Manageable: Yes Adequeate Hydration: Yes Anesthesia Complications: No Block Receding Appropriately: Yes Patient on Ventilator: No
[2021-08-10] MEDS: metFORMIN 500 MG TAB PO SCH (16:31)
[2021-08-11] MEDS: IBUPROFEN 800 MG TAB PO SCH ×3 (00:23→13:04)
[2021-08-11] MEDS: metFORMIN 500 MG TAB PO SCH (00:24)
[2021-08-11] MEDS ORDERED: TETANUS,DIPH,PERTUSS(ACELL) VACCINE 0.5 ML SYRINGE IM ONE (05:52)
--- NOTE | 2021-08-11 14:34 | Progress Note ---
Assessment and Plan A: PPD # 2 -stable P: Discharge home today Discharge instructions given Subjective - Subjective Date of service: 08/11/21 Principal diagnosis: PPD # 2 - stable Patient reports: appetite normal : doing well Objective - Vital Signs Latest vital signs: Vital Signs Temp Pulse Resp BP Pulse Ox Pulse Ox 08/11/21 08:37 98.1 F 67 18 123/66 98 08/11/21 08:07 98 08/11/21 04:36 98.2 F 64 20 112/57 97 08/11/21 00:47 98.2 F 55 L 18 127/52 99 08/10/21 20:17 98.6 F 70 18 120/59 96 08/10/21 20:15 98 08/10/21 16:47 98.3 F 63 20 137/59 98 Intake and Output 08/10/21 08/11/21 08/11/21 22:59 06:59 14:59 Intake Total 360 240 Balance 360 240 Intake: Oral 360 240 Other: Total, Intake Amount 360 240 # Voids Void 1 1 - Exam Breasts: Present: deferred Cardiovascular: Present: Regular rate Lungs: Present: Clear to auscultation Abdomen: Present: normal appearance Vulva: both: normal Uterus: Present: fundal height below umbilicus Extremities: Present: normal Deep Tendon Reflex Grade: Normal +2
--- NOTE | 2021-08-11 15:03 | Discharge Summary ---
Providers - Providers Date of Admission: 08/08/21 23:20 Date of discharge: 08/11/21 Attending physician: ANJANA LARA Primary care physician: ANJANA LARA Hospitalization Reason for admission: active labor Delivery: Episiotomy: none Laceration: none Other procedures: none complications: none Discharge diagnosis: IUP at term delivered [place] baby: female Condition at discharge: Good Disposition: 01 HOME / SELF CARE / HOMELESS Plan - Provider Discharge Summary Activity: no sex for 6 weeks, no strenuous exercise Additional instructions: [] Smoking cessation referral if applicable(refer to patient education folder for contact #) [] Refer to [facility] Book[facility] Call your doctor immediately for: * Fever > 100.5 * Heavy vaginal bleeding ( >1 pad per hour) * Severe persistent headache * Shortness of breath * Reddened, hot, painful area to leg or breast * Drainage or odor from incision. * Keep incision clean and dry at all times and follow doctor's instructions regarding bathing/showering - Follow up plan Follow up: ANJANA LARA MD [Primary Care Provider] - 6 Weeks
[2021-08-11 18:22] VITALS: BP 122/69
== END 2021-08-11 18:00 | disposition home or self-care (01) | DRG 775 ==
LOC: TRG 23:13 → LD 23:15 → TRG 23:20 → OB 08-09 12:21
PROVIDERS: ADMIT Obstetrics & Gynecology; ATTEND Obstetrics & Gynecology
PROC: 10E0XZZ Delivery of Products of Conception, External Approach (ICD-10-PCS; principal; 2021-08-09)
PROC: 3E0R3BZ Introduction of Anesthetic Agent into Spinal Canal, Percutaneous Approach (ICD-10-PCS; 2021-08-09)
PROC: 00HU33Z Insertion of Infusion Device into Spinal Canal, Percutaneous Approach (ICD-10-PCS; 2021-08-09)
PROC: 10H07YZ Insertion of Other Device into Products of Conception, Via Natural or Artificial Opening (ICD-10-PCS; 2021-08-09)
PROC: 3E0234Z Introduction of Serum, Toxoid and Vaccine into Muscle, Percutaneous Approach (ICD-10-PCS; 2021-08-09)
DX: O60.14X0 Preterm labor third trimester with preterm delivery third trimester, not applicable or unspecified (principal); Z3A.36 36 weeks gestation of pregnancy; Z37.0 Single live birth; Z23 Encounter for immunization; O24.425 Gestational diabetes mellitus in childbirth, controlled by oral hypoglycemic drugs; O36.5930 Maternal care for other known or suspected poor fetal growth, third trimester, not applicable or unspecified; O90.81 Anemia of the puerperium
CPT/HCPCS: 36415; 76816; 82962; 83036; 85014; 85018; 85027; 86592; 86850; 86900; 86901; 88300; 88307; 90715; 99211; G0378; J3490; G0463; J0702; J1815; J2300; J2540; J2590; J3105; J7030; J7120